=== PATIENT | male | born 1955 | race Caucasian/White ===

== ENCOUNTER 2017-01-14 21:18 | Inpatient (IN) | payer MEDICAID, OTHER ==
[~2017-01-14] VITALS: Ht 177.8 cm; Wt 194.3 kg
[~2017-01-14 21:18] MED LIST: ALLO100T PO; AZIT250T PO; ENAL5TAB PO; FURO-144 PO; METO-304 PO; OMEP40CA37 PO; POTA10TA10 PO; RIVA10TA PO
--- NOTE | 2017-01-14 21:20 | NUR ---
to bed 2 bib paramedics c/o sob, worsening abdominal swelling, BLE swelling x4-6weeks. pt aaox4 no acute distress noted, resp even and unlabored. place pt on cardiac monitoring, continuous pox, o2@2l/nc. call light within reach. will continue to monitor pt closely. pending er md guardado.
--- NOTE | 2017-01-14 21:23 | NUR ---
jose a digital x ray service engineer at bedside to debby vogt.
[2017-01-14 21:40] LABS: BASOPHILS # (AUTO) 0.1 /CMM (0.0-0.2); BASOPHILS % (AUTO) 1.6 % (0.0-2.0); EOSINOPHILS # (AUTO) 0.1 /CMM (0.0-0.7); EOSINOPHILS % (AUTO) 1.3 % (0.0-6.0); HEMATOCRIT 41 % (39-51); HEMOGLOBIN 12.9 g/dL (13.5-17.5); LYMPHOCYTES # (AUTO) 0.5 /CMM (0.8-4.8); LYMPHOCYTES % (AUTO) 7.6 % (20.0-44.0); MEAN CORPUSCULAR HEMOGLOBIN 26 PG (26.0-33.0); MEAN CORPUSCULAR HGB CONC 32 g/dl (31.0-36.0); MEAN CORPUSCULAR VOLUME 83 fL (80-96); MONOCYTES # (AUTO) 0.3 /CMM (0.1-1.30); MONOCYTES % (AUTO) 5.5 % (2.0-12.0); PLATELET COUNT (AUTO) 149 /CMM (150-450); RDW COEFFICIENT OF VARIATION 15.3 (11.5-15.0); RED BLOOD CELL COUNT(AUTO) 4.95 MIL/uL (4.5-6.0)
[2017-01-14 21:57] LABS: INR 1.1 (0.87-1.13); PROTHROMBIN TIME 11.8 SECS (9.5-12.7)
[2017-01-14 22:11] LABS: ALANINE AMINOTRANSFERASE 23 U/L (12-78); ALBUMIN 2.7 g/dL (3.4-5.0); ALKALINE PHOSPHATASE 84 U/L (46-116); ASPARTATE AMINOTRANSFERASE 22 U/L (15-37); BILIRUBIN,DIRECT 0.2 mg/dL (0.0-0.2); BILIRUBIN,TOTAL 0.9 mg/dL (0.2-1.0); CALCIUM, SERUM 8.4 mg/dL (8.5-10.1); CHLORIDE 99 mmol/L (98-107); CREATININE 1.6 mg/dL (0.6-1.3); GFR 44 mL/min (>60); GLUCOSE 149 mg/dL (74-106); POTASSIUM 3.4 mmol/L (3.5-5.1); SODIUM SERUM 142 mmol/L (136-145); TOTAL PROTEIN, SERUM 7.3 g/dL (6.4-8.2); TROPONIN I < 0.017 ng/mL (0.00-0.056); UREA NITROGEN, BLOOD 16 mg/dL (7-18)
[2017-01-14 22:18] LABS: CARBON DIOXIDE 40 mmol/L (21-32)
[2017-01-14 22:38] LABS: MAGNESIUM 1.8 mg/dL (1.8-2.4); PHOSPHORUS 2.7 mg/dL (2.5-4.9)
--- NOTE | 2017-01-14 22:54 | NUR ---
report called to telegraph service rateramish hogue. pending hospital admission.
--- NOTE | 2017-01-14 23:48 | NUR ---
er md spoke to dr. castillo regarding pt admission. admission orders received. will transport pt via acls protocol.
--- NOTE | 2017-01-15 00:15 | NUR ---
COLLECTIONS DIRECTOR NOTES Admitted new patient with a diagnosis of CHF. Alert and oriented. On oxygen at 4lpm via NC. Left hand IV access noted, intact and patent. Oriented to the room settings. Skin and body assessment done.Belonging list done. Will cont. to monitor.
[2017-01-15] MEDS ORDERED: ZOLPIDEM TARTRATE 5 MG TABLET PO PRN (01:30)
[2017-01-15] MEDS ORDERED: FUROSEMIDE 40 MG/4 ML VIAL IV SCH (01:30)
[2017-01-15] MEDS ORDERED: ACETAMINOPHEN 325 MG TABLET PO PRN (01:30)
--- NOTE | 2017-01-15 06:54 | NUR ---
ASSISTANT PROFESSOR OF PHYSICS NOTES Pt. remains stable throughout the night. NO complaint of shortness of breath noted. Will endorse in am nurse.
[2017-01-15 06:55] LABS: BASOPHILS % (AUTO) 0.5 % (0.0-2.0); EOSINOPHILS # (AUTO) 0.1 /CMM (0.0-0.7); EOSINOPHILS % (AUTO) 1.5 % (0.0-6.0); HEMATOCRIT 37 % (39-51); HEMOGLOBIN 11.7 g/dL (13.5-17.5); LYMPHOCYTES # (AUTO) 0.4 /CMM (0.8-4.8); LYMPHOCYTES % (AUTO) 6.5 % (20.0-44.0); MEAN CORPUSCULAR HEMOGLOBIN 26 PG (26.0-33.0); MEAN CORPUSCULAR HGB CONC 31 g/dl (31.0-36.0); MEAN CORPUSCULAR VOLUME 83 fL (80-96); MONOCYTES # (AUTO) 0.5 /CMM (0.1-1.30); MONOCYTES % (AUTO) 7.8 % (2.0-12.0); NEUTROPHILS # (AUTO) 5.1 /CMM (1.8-8.9); NEUTROPHILS % (AUTO) 83.7 % (43.0-81.0); PLATELET COUNT (AUTO) 169 /CMM (150-450); RDW COEFFICIENT OF VARIATION 16.5 (11.5-15.0); RED BLOOD CELL COUNT(AUTO) 4.49 MIL/uL (4.5-6.0); WHITE BLOOD COUNT (AUTO) 6.1 K/uL (4.3-11.0)
--- NOTE | 2017-01-15 07:01 | NUR ---
Left a message to central supply regarding Barimaxx bed for the patient. Will endorse in am shift to follow up.
--- NOTE | 2017-01-15 07:25 | NUR ---
RN NOTES: PT ON BED, AWAKE, REMAINS A/O X3, RESPIRATION EVEN AND UNLABORED ON ROOM AIR, DENIES ANY PAIN OR DISCOMFORT AT THIS TIME. IV ACCESS REMAINS PATENT AND INTACT NO REDNESS OR INFILTRATION NOTED. VS REMAINS STABLE, NEEDS ATTENDED. SAFETY PRECAUTIONS OBSERVED, CALL LIGHT IN REACH, WILL CONTINUE TO MONITOR
[2017-01-15 07:29] LABS: CALCIUM, SERUM 8.1 mg/dL (8.5-10.1); CREATININE 1.3 mg/dL (0.6-1.3); POTASSIUM 3.6 mmol/L (3.5-5.1)
--- NOTE | 2017-01-15 07:30 | NUR ---
AM RN NOTE Received patient awake A/O X4 verbally responsive. No acute distress noted. On O2 2L/min via NC. Resp even and non-labored. IV site intact and patent. Condom cath intact as applied by previous shift nurse. Bed in low locked position. Will continue to monitor.
[2017-01-15 08:00] VITALS: BP 131/81
--- NOTE | 2017-01-15 08:15 | NUR ---
AM RN NOTE CO2 40 (Lab results) notified to Dr. Mccall. Dr. Mccall made aware about condom cath.
[2017-01-15] MEDS: FUROSEMIDE 40 MG/4 ML VIAL IV SCH ×2 (08:34→17:45)
[2017-01-15] MEDS ORDERED: POTASSIUM CHLORIDE 10 MEQ TABLET.SA PO SCH (09:00)
[2017-01-15] MEDS ORDERED: AZITHROMYCIN 250 MG TABLET PO SCH (09:00)
[2017-01-15] MEDS ORDERED: FUROSEMIDE 40 MG TABLET PO SCH (09:00)
[2017-01-15 09:02] LABS: THYROID STIMULATING HORMONE 3.527 uIU/mL (0.358-3.74)
[2017-01-15] MEDS: POTASSIUM CHLORIDE 10 MEQ TABLET.SA PO SCH ×2 (09:14→17:45)
[2017-01-15] MEDS: ALLOPURINOL 100 MG TABLET PO SCH (09:15)
[2017-01-15] MEDS: METOPROLOL SUCCINATE 50 MG TAB.SR.24H PO SCH (09:15)
[2017-01-15] MEDS: LEVOFLOXACIN (500MG) 500 MG TABLET PO SCH (09:15)
[2017-01-15] MEDS: ENALAPRIL MALEATE (5 MG) 5 MG TABLET PO SCH ×2 (09:15→17:46)
--- NOTE | 2017-01-15 09:52 | NUR ---
AM RN NOTE Consent for US guided left thoracentesis obtained from patient. Called US department no response. Will call again.
[2017-01-15 10:30] LABS: ABG BASE EXCESS 11.2 mmol/L; ABG OXYGEN SATURATION 98.2 % (92.0-98.5); ABG PH 7.429 (7.350-7.450); ABG PO2 117.8 mmHg (75.0-100.0); ABG TOTAL HEMOGLOBIN 11.8 G/dL (13.5-18.0); AaDO2 100.7 mmHg; COHb 1.6 % (0.5-1.5); MetHb 0.7 % (0.0-1.5); O2Hb 95.9 % (94.0-97.0); SITE, ABG Right Radial; VENT MODE, BG NASAL CANNULA
--- NOTE | 2017-01-15 10:40 | NUR ---
AM RN NOTE Received call from Li (Respiratory therapist) with ABG's results PCO2 58.0 & [id number] and she recommended to decrease O2 from 5L to 2L/min via NC. Dr. Mccall made aware.
--- NOTE | 2017-01-15 11:37 | NUR ---
AM RN NOTE Spoke with Juan (X-Rays) he will airframe and powerplant technician for US guided thoracentesis. ELEAZAR (Rica) made aware.
--- NOTE | 2017-01-15 14:55 | NUR ---
AM RN NOTE Patient awake, A/O X3 verbally responsive. On O2 2L/min via NC O2 sat 96%. Resp even and non-labored. Thoracentesis done at bedside with 1.5 L left pleural fluid removal. No bleeding noted at site. Fluid send to lab. Dr. Mccall made aware.
[2017-01-15 15:59] VITALS: BP 103/56
[2017-01-15 15:59] LABS: APPEARANCE,SPUN,BODY FLUID HAZY (CLEAR); TOTAL VOLUME,BODY FLUID 1500 mL; WBC, BODY FLUID 500 /cu. mm. (0-200)
[2017-01-15 16:02] LABS: GLUCOSE,BODY FLUID 128 mg/dL; PROTEIN, BODY FLUID 2.5 G/DL
--- NOTE | 2017-01-15 16:08 | NUR ---
AM RN NOTE [facility] bed ordered, spoke with Jey @[facility] supply.
[2017-01-15 17:39] LABS: MACROPHAGES, BODY FLUID 12; MONOCYTES,BODY FLUID 6 %; POLYNUCLEAR, BODY FLUID 14 % (0-25)
[2017-01-15] MEDS: RIVAROXABAN 10 MG TABLET PO SCH (17:46)
--- NOTE | 2017-01-15 18:25 | NUR ---
AM RN NOTE Patient awake, A/O X4 verbally responsive. Denies any pain at this time. Dressing on S/P thoracentesis site intact and patent. Condom cath came off and re-applied new one on with output. Will endorse to next shift for MAR.
--- NOTE | 2017-01-15 19:00 | NUR ---
AM RN NOTE Patient IV site noted with leakage, attempted to re-insert but pt stated later. Will endorse to next shift RN.
--- NOTE | 2017-01-15 19:30 | NUR ---
SPORTS TRAINER OPENING NOTES: PATIENT IN BED, AOX4, ON O2 AR 2 LPM VIA NC. BREATHING NOTED TO BE AT RATE OF 21-24/MINUTE, BREATH SOUNDS CLEAR AT UPPER LUNG LIM, AND DIMINISHED AT BASES. ON TELE MONITORING, NOTED TO BE WITH AFIB AT RATE OF 80S. NO PIV ACCESS AT THIS TIME, INFORMED PATIENT THAT NEW IV LINE WILL BE REINSERTED. PATIENT HAS ALSO ACCIDENTALLY PULLED OFF CONDOM CATHETER. ACCDG TO PATIENT, HE USES THE URINAL, HOWEVER, PATIENT WAS NOTED TO HAVE SOB, ASKED PATIENT TO CALL NURSE WHENEVER HE NEEDS HELP WITH URINAL. ALSO ASKED IF PATIENT IS OK WITH POLLARD CATHETER BEING PLACED, PATIENT IS AGREEABLE. PROVIDED FOR COMFORT AND SAFETY. WILL CONT TO MONITOR.
[2017-01-15 20:00] VITALS: BP 118/69
--- NOTE | 2017-01-15 20:12 | NUR ---
RN NOTES: CHANGED IV SITE TO LEFT UPPER ARM, G 22. INTACT AND PATENT TO FLUSH.
--- NOTE | 2017-01-15 20:16 | NUR ---
RN NOTES: CALLED DR GARCIA FOR ORDER FOR POLLARD CATHETER PATIENT FEELS SOB WHENEVER HE TRIES TO USE THE URINAL. PATIENT IS ALSO HAVING TROUBLE KEEPING CONDOM CATHETER ON. DR GARCIA IMMEDIATELY CALLED BACK, ORDERED FOR POLLARD CATHETER. NOTED AND CARRIED OUT.
--- NOTE | 2017-01-15 22:28 | NUR ---
RN NOTES: POLLARD CATHETER FR 16 INSERTED, HOWEVER, NO IMMEDIATE URINE WAS OBSERVED IN THE TUBING. PATIENT HAS JUST HAD 380 CC URINE IN URINAL, PER PATIENT, HE HAD JUST VOIDED. WILL CONT TO MONITOR.
[2017-01-15 23:03] VITALS: BP 119/80
[2017-01-16] VITALS (9 sets, daily range): BP systolic 90–120; BP diastolic 48–66
--- NOTE | 2017-01-16 00:55 | NUR ---
RN NOTES: STILL WITH NO URINE IN TUBING. CHECKED WITH BLADDER SCAN, RECORDED > 200 ML URINE IN BLADDER. REPOSITIONED PATIENT TO SIDE.
[2017-01-16] MEDS: FUROSEMIDE 40 MG/4 ML VIAL IV SCH (01:34)
--- NOTE | 2017-01-16 02:00 | NUR ---
RN NOTES: PATIENT NOTED TO HAVE URINE IN COLLECTION BAG FROM POLLARD CATHETER AT ABOUT 80 CC, NOTED COLOR TO BE WITH REDDISH TINGE. NO LEAKING FROM SIDE OF URETHRA. WILL CONT TO MONITOR.
--- NOTE | 2017-01-16 06:00 | NUR ---
RN NOTES: PT STATES THAT THE PAIN OVER HIS URETHRA FROM THE POLLARD CATHETER HAS BEEN HURTING TOO MUCH, AND ASKED FOR IT TO BE TAKEN OFF. POLLARD CATHETER WAS TAKEN OFF, HOWEVER, MODERATE TO PROFUSE BLEEDING WAS NOTED FROM URETHRA. WILL CONT TO MONITOR.
--- NOTE | 2017-01-16 07:10 | NUR ---
RN NOTES: INFORMED DR GARCIA REGARDING PATIENT'S BLEEDING AFTER TAKING OUT THE POLLARD CATHETER. PER MD, MONITOR AMOUNT OF BLEEDING AND ORDERED ALSO FOR NORCO 5-325 MG PO Q4 PRN FOR PAIN. NOTED AND CARRIED OUT,
--- NOTE | 2017-01-16 07:30 | NUR ---
REAL ESTATE EXECUTIVE ASSISTANT CLOSING NOTES: PATIENT IN BED, AOX4, ON O2 AT 2 LPM VIA NC. BREATHING EVEN AND UNLABORED. ON TELE MONITORING, SHOWING AFIB AT RATE OF 80S. PIV OVER L UPPER ARM INTACT AND PATENT TO FLUSH. POLLARD CATHETER REMOVED, STILL WITH SLIGHT BLEEDING FROM URETHRA. DR GARCIA INFORMED RE BLEEDING, PER MD, HE WILL ASSESS IT. PROVIDED FOR COMFORT AND SAFETY. DUE MEDS GIVEN. ENDORSED TO AM RN, VICKI, FOR MAR.
[2017-01-16] MEDS ORDERED: HYDROCODONE/APAP 5/325MG 1 EACH TABLET PO PRN (08:00)
--- NOTE | 2017-01-16 08:00 | NUR ---
MS RN NOTES PATIENT NOTED WITH BLOOD IN URINE. DR. GARCIA MADE AWARE. BED IN LOW LOCKED POSITION. CALL LIGHT WITHIN REACH. WILL CONTINUE TO MONITOR.
[2017-01-16] MEDS: FUROSEMIDE 40 MG TABLET PO SCH ×2 (08:53→17:03)
[2017-01-16] MEDS: LEVOFLOXACIN (500MG) 500 MG TABLET PO SCH (08:53)
[2017-01-16] MEDS: ALLOPURINOL 100 MG TABLET PO SCH (08:53)
[2017-01-16] MEDS: PANTOPRAZOLE 40 MG TABLET.DR PO SCH (08:53)
[2017-01-16] MEDS: POTASSIUM CHLORIDE 10 MEQ TABLET.SA PO SCH ×2 (08:53→17:03)
[2017-01-16] MEDS: METOPROLOL SUCCINATE 50 MG TAB.SR.24H PO SCH (08:53)
--- NOTE | 2017-01-16 09:00 | NUR ---
PARTS ROOM ASSOCIATE NOTES PATIENT NATHEN AND EVALUATED BY DR. GARCIA ORDERS NOTED AND CARRIED OUT. VERBAL ORDERS OBTAINED TO HOLD XARELTO X 1 DAY ONLY DUE TO BLEEDING IN URIN.
[2017-01-16 09:46] LABS: CALCIUM, SERUM 8.2 mg/dL (8.5-10.1); CREATININE 1.3 mg/dL (0.6-1.3); POTASSIUM 4.9 mmol/L (3.5-5.1)
[2017-01-16] MEDS ORDERED: DOCUSATE SODIUM 100 MG CAPSULE PO PRN (15:00)
[2017-01-16] MEDS: RIVAROXABAN 10 MG TABLET PO SCH (17:00)
--- NOTE | 2017-01-16 19:33 | NUR ---
MANNEQUIN MOUNTER NOTES PATIENT IN BED RESTING NO SOB OR ACUTE DISTRESS NOTED. ALL DUE MEDICATIONS GIVEN. ALL NEEDS MET. PATIENTS URIN CLEARED NO BLOOD NOTED. ABLE TO URINATE WITHOUT PAIN. IV INTACT PATENT ON LEFT UPPER AM. ENDORSED CARE TO PM SHIFT.
[2017-01-17] VITALS: BP_SYST 113; BP_SYST 120; BP_DIAS 55; BP_DIAS 76
[2017-01-17 04:00] VITALS: BP 116/70
[2017-01-17 06:01] LABS: BASOPHILS % (AUTO) 0.1 % (0.0-2.0); EOSINOPHILS # (AUTO) 0.1 /CMM (0.0-0.7); EOSINOPHILS % (AUTO) 1.4 % (0.0-6.0); HEMATOCRIT 36 % (39-51); HEMOGLOBIN 11.1 g/dL (13.5-17.5); LYMPHOCYTES # (AUTO) 0.3 /CMM (0.8-4.8); MEAN CORPUSCULAR HEMOGLOBIN 26 PG (26.0-33.0); MEAN CORPUSCULAR HGB CONC 31 g/dl (31.0-36.0); MEAN CORPUSCULAR VOLUME 84 fL (80-96); MONOCYTES # (AUTO) 0.3 /CMM (0.1-1.30); MONOCYTES % (AUTO) 5.7 % (2.0-12.0); NEUTROPHILS # (AUTO) 5.1 /CMM (1.8-8.9); NEUTROPHILS % (AUTO) 87.8 % (43.0-81.0); PLATELET COUNT (AUTO) 146 /CMM (150-450); RDW COEFFICIENT OF VARIATION 16.6 (11.5-15.0); RED BLOOD CELL COUNT(AUTO) 4.29 MIL/uL (4.5-6.0); WHITE BLOOD COUNT (AUTO) 5.8 K/uL (4.3-11.0)
[2017-01-17 06:22] LABS: CALCIUM, SERUM 8.3 mg/dL (8.5-10.1); CREATININE 1.2 mg/dL (0.6-1.3); POTASSIUM 4.2 mmol/L (3.5-5.1)
--- NOTE | 2017-01-17 06:36 | NUR ---
RN NOTES: PATIENT HAS A CRITICAL VALUE OF CARBON DIOXIDE OF 42. ROBINA FRANKS IS NOTIFIED. STATES" IT'S OKAY". NO NEW ORDERS RECEIVED. PATIENT IS RESTING IN BED. STABLE VITAL SIGNS. NO COMPLAINS OF PAIN OR DISTRESS AT THIS TIME. WILL ENDORSE IT TO AM SHIFT NURSE TO CONTINUE THE CARE.
--- NOTE | 2017-01-17 07:48 | NUR ---
PILOT PLANT RESEARCH TECHNICIAN OPENING NOTES RECEIVED PATIENT IN BED, AWAKE, HEAD OF BED ELEVATED, NO SOB OR DISTRESS NOTED, ON O2 AT 2LPM VIA NC AND TOLERATED WELL. ON TELE MONITOR A-FIB HEART RATE OF 84. NO JVD, PATIENT ALERTED AND ORIENTED TIMES 4. VERBALLY RESPONSIVE AND ABLE TO MAKE NEEDS KNOWN. IV INTACT AND PATENT. PATIENT ON BARIATRIC BED, BED IS LOCKED ON THE LOWEST POSITION, CALL LIGHT WITHIN PATIENT REACH. KEPT PATIENT CLEAN AND COMFORTABLE. WILL CONTINUE TO MONITOR ACCORDINGLY.
[2017-01-17 08:00] VITALS: BP 117/67
[2017-01-17] MEDS: LEVOFLOXACIN (500MG) 500 MG TABLET PO SCH (08:15)
[2017-01-17] MEDS: PANTOPRAZOLE 40 MG TABLET.DR PO SCH (08:16)
[2017-01-17] MEDS: METOPROLOL SUCCINATE 50 MG TAB.SR.24H PO SCH (08:16)
[2017-01-17] MEDS: FUROSEMIDE 40 MG TABLET PO SCH ×2 (08:17→17:11)
[2017-01-17] MEDS: ALLOPURINOL 100 MG TABLET PO SCH (08:17)
[2017-01-17] MEDS: POTASSIUM CHLORIDE 10 MEQ TABLET.SA PO SCH ×2 (08:17→17:11)
[2017-01-17] MEDS ORDERED: LEVO500T15 PO (09:05)
--- NOTE | 2017-01-17 09:49 | NUR ---
WOUND CARE CONSULT: PATIENT SEEN AND SKIN ASSESSMENT DONE. PATIENT ALERT, ORIENTED, ABLE TO TURN AND REPOSITION HOWEVER NEEDS ASSIST, CONTINENT, GIANCARLO 16, ON BARIMMAX II BED WITH ETS AIR. SEE TODAY'S SKIN ASSESSMENT IN PCS ALONG WITH RECOMMENDATIONS DISCUSSED WITH NURSING STAFF INCLUDING MOISTURE PROTECTION WITH Z GUARD ORDERED. MD IN AGREEMENT WITH PLAN OF CARE. Addendum: 01/17/17 at 0951 by RAFA SCHNEIDER WNDNU Amended: Links added.
[2017-01-17] MEDS ORDERED: Z GUARD REMEDY 2 OZ OINT TP PRN (10:00)
[2017-01-17] MEDS ORDERED: NEOMY SULF/BACITRAC ZN/POLY 15 GM TUBE TP SCH (10:00)
[2017-01-17 12:24] VITALS: BP 113/62
[2017-01-17 16:00] VITALS: BP 111/78
[2017-01-17] MEDS: RIVAROXABAN 10 MG TABLET PO SCH (17:10)
--- NOTE | 2017-01-17 17:35 | NUR ---
SUPERVISOR BONDINGFORDER OPERATOR NOTES Discharge instructions given to patient and able to understand instructions and signed discharge paper and belongings list. Pneumonia and flu vaccine not given. flu vaccine is out of season and pneumonia vaccine not given because patient is <65. Patient left via ambulance accompanied by 2 paramedics and 1 EMT in stable condition. No SOB or distress noted, no complain of pain nor chest pain. Vitals signs checked and recorded. MD and charge nurse aware. Addendum: 01/17/17 at 1751 by SEFERINO GARCIA RN Ted mckeon.
== END 2017-01-17 18:30 | disposition home health service (06) | DRG 383 ==
LOC: ER 21:20 → TELE 22:43 → MED 01-17 16:37
PROVIDERS: ADMIT Internal Medicine; ATTEND Nurse Practitioner Acute Care
PROC: 0W9B3ZZ Drainage of Left Pleural Cavity, Percutaneous Approach (ICD-10-PCS; principal; 2017-01-16)
DX: L03.115 Cellulitis of right lower limb (principal); I50.33 Acute on chronic diastolic (congestive) heart failure; J90 Pleural effusion, not elsewhere classified; J20.9 Acute bronchitis, unspecified; E66.2 Morbid (severe) obesity with alveolar hypoventilation; I48.91 Unspecified atrial fibrillation; L03.116 Cellulitis of left lower limb; I87.2 Venous insufficiency (chronic) (peripheral); M10.9 Gout, unspecified; Z79.01 Long term (current) use of anticoagulants; I11.0 Hypertensive heart disease with heart failure; Z68.44 Body mass index [BMI] 60.0-69.9, adult
CPT/HCPCS: 36415; 36600; 71010-TC; 76942-TC; 80048-TC; 80076-TC; 83735-TC; 84100-TC; 84443-TC; 84484-TC; 85025-TC; 85730-TC; 87070-TC; 87081-TC; 89051-TC; 93307-TC; A4349; A4606; J1940; Z7610

== ENCOUNTER 2017-01-20 16:22 | Inpatient (IN) | payer MEDICAID ==
[~2017-01-20] VITALS: Ht 167.6 cm; Wt 195.0 kg
[~2017-01-20 16:22] MED LIST changes: -AZIT250T PO; -ENAL5TAB PO; +LEVO500T15 PO
--- NOTE | 2017-01-20 17:30 | NUR ---
PT BIB SELF C/O "FEELING LIKE I DID WHEN I CAME IN LAST TIME" INCLUDING LIGHTHEADEDNESS, MILD SOB, USING HOME O2 CONTINUOUSLY, AND DAVION LOWER EXTREMITY +4 PITTING EDEMA. PT REPORTS HE USUALLY USES HOME O2 SPARINGLY BUT HAS BEEN ON IT CONTINUOUSLY. RESP APPEARS EVEN UNLABORED. SKIN WARM NONDIAPHORETIC, TAUT. A/OX4. NO NEURO DEFICITS. IN ER BED 15 ON MONITOR. ON 4LPM VIA NC FOR O2 SUPPORT.
[2017-01-20] MEDS ORDERED: FUROSEMIDE 40 MG/4 ML VIAL ONE (17:56)
[2017-01-20] MEDS ORDERED: LEVO500T90 PO (17:59)
[2017-01-20] MEDS ORDERED: FURO40TA5 PO (17:59)
[2017-01-20] MEDS ORDERED: FUROSEMIDE 40 MG/4 ML VIAL IV ONE (18:00)
[2017-01-20 18:05] LABS: BASOPHILS # (AUTO) 0.1 /CMM (0.0-0.2); BASOPHILS % (AUTO) 2.2 % (0.0-2.0); EOSINOPHILS # (AUTO) 0.1 /CMM (0.0-0.7); EOSINOPHILS % (AUTO) 1.9 % (0.0-6.0); HEMATOCRIT 36 % (39-51); HEMOGLOBIN 11.5 g/dL (13.5-17.5); LYMPHOCYTES # (AUTO) 0.5 /CMM (0.8-4.8); LYMPHOCYTES % (AUTO) 8.5 % (20.0-44.0); MEAN CORPUSCULAR HEMOGLOBIN 27 PG (26.0-33.0); MEAN CORPUSCULAR HGB CONC 32 g/dl (31.0-36.0); MEAN CORPUSCULAR VOLUME 83 fL (80-96); MONOCYTES # (AUTO) 0.2 /CMM (0.1-1.30); MONOCYTES % (AUTO) 4.3 % (2.0-12.0); NEUTROPHILS # (AUTO) 4.8 /CMM (1.8-8.9); NEUTROPHILS % (AUTO) 83.1 % (43.0-81.0); PLATELET COUNT (AUTO) 123 /CMM (150-450); RDW COEFFICIENT OF VARIATION 15.8 (11.5-15.0); RED BLOOD CELL COUNT(AUTO) 4.28 MIL/uL (4.5-6.0); WHITE BLOOD COUNT (AUTO) 5.7 K/uL (4.3-11.0)
[2017-01-20 18:21] LABS: TROPONIN I < 0.017 ng/mL (0.00-0.056)
[2017-01-20 18:22] LABS: INR 1.2 (0.87-1.13); PROTHROMBIN TIME 12.6 SECS (9.5-12.7)
[2017-01-20 18:29] LABS: ALANINE AMINOTRANSFERASE 19 U/L (12-78); ALBUMIN 2.4 g/dL (3.4-5.0); ALKALINE PHOSPHATASE 64 U/L (46-116); ASPARTATE AMINOTRANSFERASE 26 U/L (15-37); B-TYPE NATRIURETIC PEPTIDE 1509 PG/ML (0-125); BILIRUBIN,DIRECT 0.2 mg/dL (0.0-0.2); BILIRUBIN,TOTAL 0.6 mg/dL (0.2-1.0); CALCIUM, SERUM 8.6 mg/dL (8.5-10.1); CHLORIDE 104 mmol/L (98-107); CREATININE 1.3 mg/dL (0.6-1.3); GFR 57 mL/min (>60); GLUCOSE 102 mg/dL (74-106); POTASSIUM 4.3 mmol/L (3.5-5.1); SODIUM SERUM 144 mmol/L (136-145); TOTAL PROTEIN, SERUM 6.5 g/dL (6.4-8.2); UREA NITROGEN, BLOOD 20 mg/dL (7-18)
[2017-01-20 18:46] LABS: CARBON DIOXIDE 45 mmol/L (21-32)
--- NOTE | 2017-01-20 18:56 | NUR ---
DR.SHAO ELLER
--- NOTE | 2017-01-20 19:15 | NUR ---
Patient is resting comfortably in bed. VSS. ALL NEEDS ATTENDED TO. NAD NOTED. RESP EVEN UNLABORED.
--- NOTE | 2017-01-20 19:15 | NUR ---
RECIEVED CALL FROM RADHA AT [facility], PHONE NUMBER [phone], SHE INFORMED ME SHE IS GOING TO WORK ON PLACEMENT FOR PT AND ASKED ME TO FAX FACESHEET AND PT RESULTS TO [phone]
--- NOTE | 2017-01-20 20:00 | NUR ---
TRIED CALLING RADHA FROM [facility] AT [phone], PHONE NUMBER DOES NOT WORK
--- NOTE | 2017-01-20 21:00 | NUR ---
TRIED CALLING RADHA AT [facility] AGAIN, PHONE NUMBER DOES NOT WORK STILL
--- NOTE | 2017-01-20 21:42 | NUR ---
HFOX: RESTING COMFORTABLY IN BED, ALL NEEDS ATTENDED TO. NAD NOTED.
--- NOTE | 2017-01-20 22:00 | NUR ---
Patient is resting comfortably in bed. VSS. NAD NOTED. RESP EVEN UNLABORED.
--- NOTE | 2017-01-20 22:42 | NUR ---
CALLED AT [phone], LEFT MESSAGE ON VOICEMAIL
--- NOTE | 2017-01-20 23:26 | NUR ---
PROVIDED WITH SANDWICH AND JUICE PER PT REQUEST. NAD NOTED. VSS.
--- NOTE | 2017-01-20 23:35 | NUR ---
REPORT GIVEN TO BRUNA PURCELL RN FOR MAR.
[2017-01-21] VITALS: BP 141/77
--- NOTE | 2017-01-21 00:02 | NUR ---
SPOKE TO RADHA, DRIVE IN WAITER/WAITRESS AND STATES "WE GOT A BED AT [facility]". ALSO REQUESTED ORDER FOR BARIATRIC BED TO BE FAXED WHICH WAS DONE.
--- NOTE | 2017-01-21 00:15 | NUR ---
STORE TEAM LEADER RADHA CALLED BACK AND STATED "I CANT FIND A BED DUE TO PATEINT WEIGHT".
--- NOTE | 2017-01-21 00:17 | NUR ---
DR. GARCIA NOTIFIED AND STATES "ADMIT PATEINT HERE AT [facility]"."
--- NOTE | 2017-01-21 00:36 | NUR ---
REPORT GIVEN TO KYE/COLIN.
--- NOTE | 2017-01-21 00:50 | NUR ---
RN NOTES: NEW ADMISSION FROM ER VIA JENYRSCARLET ACCOMPANIED BY RN WITH C/O BLE SWELLING AND DIZZINESS SINCE AM,WORSENING COUGH AND SOB,PATIENT IS ALERT AND COHERENTX3, OBESE,ABLE TO MAKE NEEDS KNOWN,WITH ON AND OFF COUGH WITH WHITE PHLEGM,KEPT ON HIGH FOWLERS POSITION ON CONTINOUR O2 SPO2-93%,RECEIVED LASIX 40 MG IN ER,ABLE TO PEE IN THE URINAL WITH ASSISTANCE, PATIENT CLAIMED HE HAS BLOOD STREAK IN THE URINE AFTER CATHETER REMOVAL DURING HIS LAST ADMISSION HERE IN [facility] ON ,UPON URINATION NOTED BLOOD STREAKED ON THE URINE.SOB ON EXERTION,BODY ASSESSEMNT DONE: OLD SURGICAL SITE ON THE MID ABDOMEN AREA,MULTIPLE SKIN DISCOLORATION NOTED ON BUE AND [id number],REDNESS,OLD SCABS),BLACK DISCOLORATION ON THE RIGHT FOOT ADJASCENT TO RIGHT BIG TOE;FOR WOUND CONSULT,BLE (++++)EDEMA WITH REDNESS/SWELLING AND REDDISH/PINK DISCOLORATION NOTED.BLE KEPT ELEVATED.IV CANNULA ON RAIZA G#20 PATENT.ORRIENTED TO UNIT AND STAFF, FALL SAFETY, ASPIRATION PRECAUTION OBSERVE, CALL LIGHT WITHIN EASY REACH,BED LOW AND LOCKED.
[2017-01-21 01:00] VITALS: BP 141/77
--- NOTE | 2017-01-21 01:50 | NUR ---
RN NOTES: PATIENT REQUEST FOR PAIN MEDICATION HE WANTS TYLENOL FOR HIS BACK PAIN 2-3,PUT IN COMFORTABLE POSITION,CALL LIGHT WITHIN REACH.
--- NOTE | 2017-01-21 03:00 | NUR ---
RN NOTES: ABLE TO SLEEP AT SHORT INTERVALS,AFTER HE PEE ON THE URINAL HE REQUEST TO TAKE HIS TYLENOL, GENERALIZED PAIN 3/10,MAINTAIN ON HIGH FOWLERS POSITION, CALL LIGHT WITHIN REACH.
[2017-01-21] MEDS ORDERED: ACETAMINOPHEN 325 MG TABLET ONE (03:03)
[2017-01-21] MEDS: ACETAMINOPHEN 325 MG TABLET PO PRN ×2 (03:08→18:49)
--- NOTE | 2017-01-21 07:00 | NUR ---
RN NOTES: PATIENT BEDSIDE MEDICATION CHECK AND PUT IN 1 CONTAINER TO BE SEND TO PHARMACY,COUNTER SIGNED BY PATIENT, CALL LIGHT WITH IN REACH, BED LOW AND LOCKED,ENDORSED FOR CONTINUITY OF CARE.
--- NOTE | 2017-01-21 07:30 | NUR ---
MS RN RECEIVED ON BED, AWAKE,ALERT,ORIENTED X4,CAME IN W/ SOB DENIES PAIN AT THIS TIME. PATIENT STILL COMPLAINING OF SOB, W/ ADEQUATE SATURATION, WILL MONITOR PATIENT.
[2017-01-21 08:00] VITALS: BP 118/68
[2017-01-21 08:10] LABS: EOSINOPHILS # (AUTO) 0.1 /CMM (0.0-0.7); EOSINOPHILS % (AUTO) 1.2 % (0.0-6.0); HEMATOCRIT 40 % (39-51); HEMOGLOBIN 12.4 g/dL (13.5-17.5); LYMPHOCYTES # (AUTO) 0.4 /CMM (0.8-4.8); LYMPHOCYTES % (AUTO) 5.5 % (20.0-44.0); MEAN CORPUSCULAR HEMOGLOBIN 26 PG (26.0-33.0); MEAN CORPUSCULAR HGB CONC 31 g/dl (31.0-36.0); MEAN CORPUSCULAR VOLUME 84 fL (80-96); MONOCYTES # (AUTO) 0.4 /CMM (0.1-1.30); MONOCYTES % (AUTO) 6.4 % (2.0-12.0); NEUTROPHILS # (AUTO) 5.5 /CMM (1.8-8.9); NEUTROPHILS % (AUTO) 86.9 % (43.0-81.0); PLATELET COUNT (AUTO) 139 /CMM (150-450); RDW COEFFICIENT OF VARIATION 16.4 (11.5-15.0); RED BLOOD CELL COUNT(AUTO) 4.74 MIL/uL (4.5-6.0); WHITE BLOOD COUNT (AUTO) 6.4 K/uL (4.3-11.0)
--- NOTE | 2017-01-21 08:25 | NUR ---
MS RN RECEIVED A CRITICAL VALUE OF CO2 - 41, DR GARCIA WAS AWARE AND SAW PATIENT.
--- NOTE | 2017-01-21 08:30 | NUR ---
MS SHAW BREAKFAST SERVED, DUE MEDS GIVEN,TOLERATED WELL.
[2017-01-21 08:37] LABS: CALCIUM, SERUM 8.6 mg/dL (8.5-10.1); CREATININE 1.3 mg/dL (0.6-1.3); POTASSIUM 4.2 mmol/L (3.5-5.1)
--- NOTE | 2017-01-21 08:45 | NUR ---
MS RN WAS SEEN BY RADHA PATRICIA/ ABI TO HAVE U/S GUIDED THORACENTESIS.
[2017-01-21] MEDS: FUROSEMIDE 40 MG/4 ML VIAL IV SCH ×2 (09:42→18:24)
[2017-01-21] MEDS: ALLOPURINOL 100 MG TABLET PO SCH (09:45)
[2017-01-21] MEDS: POTASSIUM CHLORIDE 20 MEQ TAB.PRT.SR PO SCH (09:45)
[2017-01-21] MEDS: LEVOFLOXACIN (500MG) 500 MG TABLET PO SCH (09:46)
[2017-01-21] MEDS: METOLAZONE 2.5 MG TABLET PO SCH (09:46)
[2017-01-21] MEDS: METOPROLOL SUCCINATE 50 MG TAB.SR.24H PO SCH (09:47)
[2017-01-21] MEDS: PANTOPRAZOLE 40 MG TABLET.DR PO SCH (09:48)
--- NOTE | 2017-01-21 10:00 | NUR ---
ms rn patient refused to check on his buttocks for any redness, said he is ok.
--- NOTE | 2017-01-21 11:00 | NUR ---
MS COAT HANGER SHAPER MACHINE OPERATOR DONE W/ 1500ML OUTPUT,DENIES PAIN AT THIS TIME, BREATHING IMPROVED PER PATIENT.
[2017-01-21 16:00] VITALS: BP 100/72
[2017-01-21] MEDS: RIVAROXABAN 10 MG TABLET PO SCH (17:00)
--- NOTE | 2017-01-21 17:00 | NUR ---
MS RN PATIENT HAS SOME BLEEDING AT PENILE AREA,CN AWARE, WILL TEXT DR. GARCIA.ALL NEEDS ATTENDED.
--- NOTE | 2017-01-21 17:20 | NUR ---
MS COLIN SANCHEZ TEXT BACK W/ ORDER TO
--- NOTE | 2017-01-21 17:30 | NUR ---
MS COLIN GARCIA TEXT BACK W/ ORDER TO HOLD XACECILYTO.
--- NOTE | 2017-01-21 18:00 | NUR ---
ms amish max bariatric bed was delivered but patient refused, cn aware.
--- NOTE | 2017-01-21 19:05 | NUR ---
MS RN NOTES: RECEIVED PATIENT SITTING UP IN BED WATCHING TELEVISION. PT IS A/O X4. PT'S SKIN KEPT CLEAN, DRY, AND COMFORTABLE. CALL LIGHT WITHIN PT'S REACH. PT ON 2LPM VIA NASAL CANNULA AND TOLERATING WELL. BED KEPT IN LOCKED, LOWEST, POSITION, AND SIDE RAILS X 2 UP WITH HIGH JEONG'S. PT REFUSES TO BE TURNED AND REPOSITIONED. PT IS COMFORTABLE SITTING UP. IV ON RAIZA #20 AND IS PATENT AND INTACT. NO SIGNS OR SYMPTOMS OF DISTRESS NOTED. WILL CONTINUE TO MONITOR PT.
--- NOTE | 2017-01-21 19:28 | NUR ---
MS RN ON BED URINATING, BLEEDING SUBSIDED.
[2017-01-21 20:00] VITALS: BP 95/68
--- NOTE | 2017-01-21 20:00 | NUR ---
MS RN NOTES: PATIENT IS STATUS POST THORACENTESIS. SPECIMEN BOTTLES WERE FOUND IN PT'S SINK. THEY WERE PUT IN REFRIGERATOR. VERONICA (AM NURSE) IS TO FOLLOW UP AND APPLY PT LABELS ON THEM.
[2017-01-21 20:32] VITALS: BP 95/68
--- NOTE | 2017-01-21 20:49 | NUR ---
MS RN NOTES: SEEN SPECIMEN BOTTLE WITH THORACENTESIS FLUID IN THE PT'S SINK, CONTACTED LAB, WILL SEND THE SPECIMEN FOR CYTOLOGY, ANALYSIS AND CULTURE GRAM STAIN
--- NOTE | 2017-01-21 20:50 | NUR ---
ms rn notes; went to the lab talked to yanelis, she stated who was the rn present when the procedure is done, what time, what kind of procedure. the specimen bottle is not labeled, she stated, where did i get the specimen, and if im sure the specimen is for this patient, because technically it is not safe to bring the specimen without any label, just because we found the specimen inside room by the sink, although there's only one pt in the room, and even if pt had thoracentesis in am. the specimen bottle should be properly labeled, date time initial with the attending nurse who was present during the procedure. relayed to graphic design intern casie, stated to put the specimen bottle in the fridge and she will have graphic design intern marleny deal with it in am.
--- NOTE | 2017-01-22 04:00 | NUR ---
MS RN NOTES: OFFERED BED BATH TO THE PT, HOWEVER PT STATED HE WOULD PREFER GALO THE DAY COSTUME MAKER TO DO BED BATH FOR HIM, BECAUSE GALO ABLE TO STAND HIM ON THE BED SIDE, DISCUSS WITH THE PT REGARDING RISK OF HELPING HIM STAND, WE DONT WANT PT TO FALL, EXPLAINED THAT WE CAN PROVIDE BED BATH IN THE BED, PT REFUSED,
--- NOTE | 2017-01-22 04:57 | NUR ---
MS RN NOTES; PT CALLED C/O HE'S SHORT OF BREATH, CHECK OXYGENATION STATUS AND REVEAL 91% ON 4L OXYGEN, RECHECK VS AND REVEAL 107/61, HR 73, RR 21, SPO2 94-95% , WILL CONTINUE TO MONITOR PT Addendum: 01/22/17 at 0500 by PERFECTO MAYNARD RN CORRECTION OF ENTRY: 2L OF OXYGEN NOT 4
[2017-01-22 04:59] VITALS: BP 107/61
[2017-01-22 07:07] LABS: CALCIUM, SERUM 8.5 mg/dL (8.5-10.1); CREATININE 1.4 mg/dL (0.6-1.3); POTASSIUM 4.4 mmol/L (3.5-5.1)
--- NOTE | 2017-01-22 07:11 | NUR ---
MS RN CLOSING NOTES PT IS SITTING UP IN BED AND IS DOZING OFF INTERMITTENTLY. PT IS A/O X4. PT'S SKIN KEPT CLEAN, DRY, AND COMFORTABLE. CALL LIGHT WITHIN PT'S REACH. PT ON 2LPM VIA NASAL CANNULA AND TOLERATING WELL. BED KEPT IN LOCKED, LOWEST, POSITION, AND SIDE RAILS X 2 UP WITH HIGH JEONG'S. PT IS COMFORTABLE SITTING UP AND REFUSES TO BE TURNED AND REPOSITIONED. IV ON RAIZA #20 AND IS PATENT AND INTACT. NO SIGNS OR SYMPTOMS OF DISTRESS NOTED. PT DID NOT HAVE ANY BLOOD IN URINE. THIS WAS MONITORED THROUGHOUT SHIFT. 490 ML WAS THE OUTPUT FROM THE URINAL. WILL ENDORSE TO AM NURSE FOR CONTINUITY OF CARE.
--- NOTE | 2017-01-22 07:15 | NUR ---
MS RN NOTES RECEIVED PATIENT AWAKE, SITTING UP IN BED. ON OXYGEN AT 2L/MIN VIA NC, POST THORACENTESIS YESTERDAY. NO SOB NOTED. IV IN RAIZA G20 PATENT AND INTACT, FLUSHES WELL. NO C/O PAIN AT THIS TIME. CALL LIGHT WITHIN REACH. WILL CONT TO MONITOR.
[2017-01-22 08:00] VITALS: BP 105/46
--- NOTE | 2017-01-22 08:00 | NUR ---
ELEVATED CARBON DIOXIDE 45, DR. GARCIA MADE AWARE. HE WILL SEE THE PATIENT TODAY.
--- NOTE | 2017-01-22 08:30 | NUR ---
PER DR. GARCIA, FLUIDS FROM THORACENTESIS DOES NOT NEED TO CHECK FOR BODY FLUID ANALYSIS, CHARGE NURSE IS AWARE.
[2017-01-22] MEDS: LEVOFLOXACIN (500MG) 500 MG TABLET PO SCH (08:52)
[2017-01-22] MEDS: PANTOPRAZOLE 40 MG TABLET.DR PO SCH (08:55)
[2017-01-22] MEDS: POTASSIUM CHLORIDE 20 MEQ TAB.PRT.SR PO SCH (08:55)
[2017-01-22] MEDS: FUROSEMIDE 40 MG/4 ML VIAL IV SCH ×3 (08:55→17:47)
[2017-01-22] MEDS: METOLAZONE 2.5 MG TABLET PO SCH (08:55)
[2017-01-22] MEDS: ALLOPURINOL 100 MG TABLET PO SCH (08:55)
[2017-01-22] MEDS: METOPROLOL SUCCINATE 50 MG TAB.SR.24H PO SCH (08:56)
--- NOTE | 2017-01-22 09:42 | NUR ---
US GUIDED THORACENTESIS-LEFT, PATIENT CONSENTED THE PROCEDURE.
--- NOTE | 2017-01-22 10:57 | NUR ---
POST LEFT THORACENTESIS BY SACHA GARCIA WITH 1500ML FLUID DRAINAGE OUTPUT, BROWNISH COLOR. XRAY CHEST STAT ORDERED.
[2017-01-22 16:00] VITALS: BP 117/65
[2017-01-22] MEDS: RIVAROXABAN 10 MG TABLET PO SCH (17:47)
--- NOTE | 2017-01-22 17:54 | NUR ---
XARELTO WAS HELD YESTERDAY DUE TO SOME PENILE BLEEDING YESTERDAY. NO EPISODE OF BLEEDING IN PENILE AREA SINCE THIS MORNING. ADMINISTERED DUE DOSE OF XARELTO ORDERED.
--- NOTE | 2017-01-22 18:37 | NUR ---
MS RN CLOSING NOTES PATIENT IN BED, NOT IN DISTRESS. POST LEFT THORACENTESIS TODAY WITH NO S/S OF ADVERSE REACTION, EPISODE OF NON PRODUCTIVE COUGH, NO SOB NOTED. PATIENT HAD BOWEL MOVEMENT TODAY, VOIDED WITHOUT DIFFICULTY. NO C/O PAIN AT THIS TIME. CALL LIGHT WITHIN REACH. FOR XRAY CHEST TOMORROW ORDERED. WILL ENDORSE TO TRIAL MANAGEMENT ASSOCIATE RN FOR CONTINUITY OF CARE.
--- NOTE | 2017-01-22 19:30 | NUR ---
MS RN NOTE RECEIVED PATIENT FROM DAY SHIFT, PATIENT IS ALERT AND ORIENTEDX4, ON BED REST, DENIES SOB OR PAIN AT THIS TIME. IV ON LEFT UPPER ARM IS PATENT AND INTACT, HL ONLY. SRX2, BED IN LOW POSITION, CALL LIGHT WITHIN REACH, WILL CONTINUE TO MONITOR PATIENT.
[2017-01-22 20:00] VITALS: BP 113/62
--- NOTE | 2017-01-23 06:47 | NUR ---
MS RN NOTE PATIENT IS RESTING IN BED COMFORTABLY, DENIES RESPIRATORY DISTRESS OR PAIN AT THIS TIME. NO ACUTE DISTRESS NOTED DURING THE DEODORIZER OPERATOR, WILL ENDORSE TO DAY SHIFT FOR MAR.
--- NOTE | 2017-01-23 07:30 | NUR ---
ms rn Initial notes Received patient in bed, awake, head of bed elevated, no SOB or distress noted, on 02 @ 23lpm via NC and tolerated well. Patient is alert and oriented x 4, verbally responsive and able to make needs known. IV intact on the RAIZA G20 HL only. Kept patient clean and comfortable in bed, call light with in patient reach, will continue to monitor accordingly.
[2017-01-23 08:00] VITALS: BP_SYST 110; BP_SYST 168; BP_DIAS 61; BP_DIAS 84
[2017-01-23 08:22] LABS: CALCIUM, SERUM 8.1 mg/dL (8.5-10.1); CREATININE 1.4 mg/dL (0.6-1.3); POTASSIUM 3.6 mmol/L (3.5-5.1)
--- NOTE | 2017-01-23 09:00 | NUR ---
ms rn notes Dr. Mccall came seen and examined the patient and informed regarding patient CO2 of 45 and made aware. Per MD its okay. Will continue to monitor accordingly.
[2017-01-23] MEDS: BUMETANIDE (1 MG) 1 MG TABLET PO SCH ×2 (09:17→16:30)
[2017-01-23] MEDS: METOPROLOL SUCCINATE 50 MG TAB.SR.24H PO SCH (09:18)
[2017-01-23] MEDS: ALLOPURINOL 100 MG TABLET PO SCH (09:18)
[2017-01-23] MEDS: LEVOFLOXACIN (500MG) 500 MG TABLET PO SCH (09:18)
[2017-01-23] MEDS: PANTOPRAZOLE 40 MG TABLET.DR PO SCH (09:18)
[2017-01-23] MEDS: METOLAZONE 2.5 MG TABLET PO SCH (09:18)
[2017-01-23] MEDS: POTASSIUM CHLORIDE 20 MEQ TAB.PRT.SR PO SCH (09:18)
[2017-01-23 16:00] VITALS: BP 120/79
[2017-01-23] MEDS: RIVAROXABAN 10 MG TABLET PO SCH (16:32)
--- NOTE | 2017-01-23 19:15 | NUR ---
RN NOTES RECEIVED PT AWAKE, HOB ELEVATED, APPEARS COMFORTABLE, NO SIGNS OF ACUTE DISTRESS NOTED WITH O2 INHALATION AT 3LPM VIA NC WITH GOOD SATURATION. PT ALERT AND ORIENTED X4, DENIES SOB AND VERBALIZING MILD MUSCLE SPASM ON BOTH LOWER EXTREMITY. IV ACCESS ON LEFT UPPER ARM PATENT AND INTACT. KEPT PT COMFORTABLE AND ATTENDED, WITH CALL LIGHT WITHIN REACH. WILL CONTINUE TO MONITOR PT.
--- NOTE | 2017-01-23 19:20 | NUR ---
ms rn closing notes All needs provided, attended, and anticipated. Kept patient clean and comfortable in bed, call light within patient reach, will continue to monitor accordingly. Endorsed to next shift RN to continue care.
[2017-01-23 20:33] VITALS: BP 91/60
[2017-01-23 22:00] VITALS: BP 91/60
--- NOTE | 2017-01-24 07:15 | NUR ---
RN NOTES PT AWAKE, SITTING IN BED, NO SOB, NOT IN DISTRESS, WITH O2 INHALATION AT 3LPM VIA NC TOLERATING WELL. PT COUGH AT TIMES, NON PRODUCTIVE. PER PT HE STARTED FEELING THE CHEST CONGESTION AGAIN AFTER THE THORACENTESIS. VITAL SIGNS STABLE, DENIES ANY PAIN. KEPT PT CLEAN AND DRY AND COMFORTABLE. ALL NEEDS ATTENDED. ENDORSE TO MORNING NURSE FOR CONTINUITY OF CARE.
[2017-01-24 07:33] LABS: CALCIUM, SERUM 8.3 mg/dL (8.5-10.1); CREATININE 1.5 mg/dL (0.6-1.3); POTASSIUM 3.3 mmol/L (3.5-5.1)
[2017-01-24 08:00] VITALS: BP_SYST 103; BP_SYST 137; BP_DIAS 60; BP_DIAS 71
--- NOTE | 2017-01-24 08:00 | NUR ---
m/s director of accounts receivable: notes pt refused to be turned or repositioned and refused full body assessment. instructed to call for assistance.
--- NOTE | 2017-01-24 08:05 | NUR ---
m/s search engine marketing strategist: notes dr. castillo here and made aware re: co2 result=50 with no new order at this time. no c/o sob or any resp. problem at this time. will monitor.
--- NOTE | 2017-01-24 08:20 | NUR ---
m/s clinical laboratory medical director: md visit seen and examined by dr. castillo with order to d'c to snf. pt doesn't want to go home and prefers snf. cn management will arrange snf placement. pt made aware.
[2017-01-24] MEDS ORDERED: BUME1TAB16 PO (08:21)
[2017-01-24] MEDS ORDERED: Potassium Chloride PO (08:21)
[2017-01-24] MEDS: METOPROLOL SUCCINATE 50 MG TAB.SR.24H PO SCH (09:00)
[2017-01-24] MEDS ORDERED: POTASSIUM CHLORIDE 20 MEQ TAB.PRT.SR PO ONE (09:00)
[2017-01-24] MEDS: POTASSIUM CHLORIDE 20 MEQ TAB.PRT.SR PO SCH (09:31)
[2017-01-24] MEDS: BUMETANIDE (1 MG) 1 MG TABLET PO SCH ×2 (09:31→16:21)
[2017-01-24] MEDS: PANTOPRAZOLE 40 MG TABLET.DR PO SCH (09:32)
[2017-01-24] MEDS: ALLOPURINOL 100 MG TABLET PO SCH (09:32)
[2017-01-24] MEDS: LEVOFLOXACIN (500MG) 500 MG TABLET PO SCH (09:32)
[2017-01-24] MEDS: METOLAZONE 2.5 MG TABLET PO SCH (09:32)
--- NOTE | 2017-01-24 10:00 | NUR ---
M/S DAIRY CATTLE FARMER: NOTES INCONTINENT OF BLADDER CARE RENDERED. PT REFUSED AM CARE EXCEPT FOR DIAPER CHANGE. PT ABLE TO TURN INDEPENDENTLY. INSTRUCTED TO CALL FOR ASSISTANCE. WILL CONTINUE TO MONITOR. Addendum: 01/24/17 at 1903 by RONNELL SMYTHN pt continue to refused to turned or repositioned when offered, pt just wants diaper change, pt able to turn self, but doesn't want to be positioned on the side.
--- NOTE | 2017-01-24 12:00 | NUR ---
M/S TECHNICAL SYSTEMS ARCHITECT: NOTES STILL AWAITING FOR SNF PLACEMENT. PT AWARE. NO C/O PAIN OR DISCOMFORT. WILL CONTINUE TO MONITOR. Addendum: 01/24/17 at 1903 by RONNELL SMYTHN pt continue to refused to turned or repositioned when offered, pt just wants diaper change, pt able to turn self, but doesn't want to be positioned on the side.
--- NOTE | 2017-01-24 14:00 | NUR ---
m/s phone manager: notes pt still refuses to be turned and repositioned on the side. pt prefers to lay supine. instructed to call for assistance. will monitor.
--- NOTE | 2017-01-24 15:30 | NUR ---
M/S COMPUTER SYSTEMS DESIGNER: NOTES MONET (CASE MANAGEMENT) CALLED AND INFORMED ME THAT PT HAS A BED AT [facility]. PT MADE AWARE AND WILL CALL HIS (WALI) RE: D'C TO [facility] AT 1700 STATED. INSTRUCTED TO CALL FOR ASSISTANCE. WILL MONITOR.
--- NOTE | 2017-01-24 15:55 | NUR ---
m/s realtime court reporter: notes louis (case management) here and informed me there a change of snf to go to and pt made aware. pt will call again to let her know about [facility].
[2017-01-24 16:00] VITALS: BP 108/66
--- NOTE | 2017-01-24 16:00 | NUR ---
m/s triage rn: notes report given to nika (rn) for continuity of care at [facility].
[2017-01-24] MEDS: RIVAROXABAN 10 MG TABLET PO SCH (16:22)
--- NOTE | 2017-01-24 16:30 | NUR ---
M/S INFORMATION SYSTEMS SUPERVISOR: D'C INSTRUCTIONS DISCHARGED INSTRUCTIONS GIVEN TO PT AND VERBALIZED UNDERSTANDING. EARLY DINNER TRAY ORDERED. INSTRUCTED TO CALL FOR ASSISTANCE. WILL MONITOR.
--- NOTE | 2017-01-24 17:00 | NUR ---
M/S THAW SHED HEATER TENDER: NOTES VICKI FROM [facility] CALLED AND INFORMED ME THAT THEY ARE RUNNING LATE. PT MADE AWARE.
--- NOTE | 2017-01-24 18:10 | NUR ---
M/S HUC OB: NOTES AMBULANCE HERE AND REPORT GIVEN TO ONE OF THE CREW. H/L REMOVED WITH TIP INTACT WITH NO BLEEDING, NO REDNESS, AND NO SWELLING NOTED.
--- NOTE | 2017-01-24 18:24 | NUR ---
M/S COSMETOLOGY TEACHER: DISCHARGED DISCHARGED TO SNF VIA AMBULANCE IN STABLE CONDITION WITH ALL D'C PAPERS, MEDS, AND BELONGINGS ACCOMPANIED BY 2 AMBULANCE CREW.
== END 2017-01-24 18:30 | DRG 194 ==
LOC: ER 16:28 → MED 01-21 00:38
PROVIDERS: ADMIT Internal Medicine; ATTEND Internal Medicine
DX: I11.0 Hypertensive heart disease with heart failure (principal); E87.2 Acidosis; E44.1 Mild protein-calorie malnutrition; E66.2 Morbid (severe) obesity with alveolar hypoventilation; I50.33 Acute on chronic diastolic (congestive) heart failure; I48.91 Unspecified atrial fibrillation; D64.9 Anemia, unspecified; I87.2 Venous insufficiency (chronic) (peripheral); K21.9 Gastro-esophageal reflux disease without esophagitis; Z68.44 Body mass index [BMI] 60.0-69.9, adult; I87.8 Other specified disorders of veins; Z79.01 Long term (current) use of anticoagulants; Z79.899 Other long term (current) drug therapy
CPT/HCPCS: 36415; 71010-TC; 76942-TC; 80048-TC; 80076-TC; 83880; 84484-TC; 85025-TC; 85730-TC; 87081-TC; A4606; A6403; J1940; Z7610

== ENCOUNTER 2017-03-11 22:55 | Inpatient (IN) | payer MEDICAID ==
[~2017-03-11] VITALS: Ht 188 cm; Wt 164.2 kg
[~2017-03-11 22:55] MED LIST changes: +BUME1TAB16 PO; -FURO-144 PO; -LEVO500T15 PO; -POTA10TA10 PO; +Potassium Chloride PO
[2017-03-11] MEDS ORDERED: IV NS 0.9% 1,000 ML BAG IV ONE ×2 (23:00→23:30)
--- NOTE | 2017-03-11 23:01 | NUR ---
SVETLANA MARTEL FROM HOME; OVERDOSE ON ENALAPRIL. PLACED ON MONITOR. GOWNED PT. AWAITING MD ORDER.
--- NOTE | 2017-03-11 23:01 | NUR ---
PT HAS RAIZA #20 IV ACCESS.
--- NOTE | 2017-03-11 23:02 | NUR ---
DR. DYER AT BEDSIDE FOR EVAL.
[2017-03-11] MEDS ORDERED: IV SET PRIMARY PUMP SET 1 EA INFUS.SET MC ONE (23:05)
[2017-03-11] MEDS ORDERED: IV NS 0.9% 1,000 ML ONE ×2 (23:05→23:30)
--- NOTE | 2017-03-11 23:07 | NUR ---
EKG IN PROGRESS.
[2017-03-11] MEDS ORDERED: ONDANSETRON HCL/PF 4 MG/2 ML VIAL ONE (23:25)
[2017-03-11 23:29] LABS: EOSINOPHILS # (AUTO) 0.1 /CMM (0.0-0.7); EOSINOPHILS % (AUTO) 1.1 % (0.0-6.0); HEMATOCRIT 34 % (39-51); HEMOGLOBIN 11.1 g/dL (13.5-17.5); LYMPHOCYTES # (AUTO) 0.6 /CMM (0.8-4.8); LYMPHOCYTES % (AUTO) 5.3 % (20.0-44.0); MEAN CORPUSCULAR HEMOGLOBIN 27 PG (26.0-33.0); MEAN CORPUSCULAR HGB CONC 33 g/dl (31.0-36.0); MEAN CORPUSCULAR VOLUME 82 fL (80-96); MONOCYTES % (AUTO) 9.1 % (2.0-12.0); NEUTROPHILS # (AUTO) 9.7 /CMM (1.8-8.9); NEUTROPHILS % (AUTO) 84.5 % (43.0-81.0); PLATELET COUNT (AUTO) 179 /CMM (150-450); RDW COEFFICIENT OF VARIATION 17.6 (11.5-15.0); RED BLOOD CELL COUNT(AUTO) 4.08 MIL/uL (4.5-6.0); WHITE BLOOD COUNT (AUTO) 11.4 K/uL (4.3-11.0)
[2017-03-11] MEDS ORDERED: ONDANSETRON HCL/PF 4 MG/2 ML VIAL IV ONE (23:30)
[2017-03-11] MEDS ORDERED: IV SET PRIMARY 1 EA INFUS.SET MC ONE (23:30)
[2017-03-11 23:38] LABS: INR 1.12 (0.87-1.13); PROTHROMBIN TIME 12.1 SECS (9.5-12.7)
[2017-03-11 23:42] LABS: ALANINE AMINOTRANSFERASE 74 U/L (12-78); ALBUMIN 2.5 g/dL (3.4-5.0); ALKALINE PHOSPHATASE 72 U/L (46-116); ASPARTATE AMINOTRANSFERASE 40 U/L (15-37); BILIRUBIN,DIRECT 0.6 mg/dL (0.0-0.2); BILIRUBIN,TOTAL 1.2 mg/dL (0.2-1.0); CALCIUM, SERUM 8.2 mg/dL (8.5-10.1); CARBON DIOXIDE 26 mmol/L (21-32); CHLORIDE 92 mmol/L (98-107); CREATININE 2.8 mg/dL (0.6-1.3); GLUCOSE 110 mg/dL (74-106); POTASSIUM 4.3 mmol/L (3.5-5.1); SODIUM SERUM 126 mmol/L (136-145); TOTAL PROTEIN, SERUM 6.8 g/dL (6.4-8.2)
[2017-03-11 23:43] LABS: ACETAMINOPHEN 0 ug/ml (10-30); ALCOHOL, BLOOD < 3 mg/dL (0-0); SALICYLATE 2.2 mg/dL (2.8-20.0)
[2017-03-11 23:47] LABS: UREA NITROGEN, BLOOD 92 mg/dL (7-18)
--- NOTE | 2017-03-11 23:55 | NUR ---
URINE COLLECTED. CALLED LAB FOR MANAGER METAL.
[2017-03-12] VITALS (81 sets, daily range): BP systolic 68–128; BP diastolic 36–76
--- NOTE | 2017-03-12 00:23 | NUR ---
GOMEZ PATRICIA AT BEDSIDE FOR CENTRAL LINE.
[2017-03-12] MEDS ORDERED: IV D5W 500 ML IV ONE (00:31)
[2017-03-12] MEDS ORDERED: NOREPINEPHRINE 4 MG/4 ML AMPUL IV ONE (00:31)
[2017-03-12] MEDS ORDERED: IV SET PRIMARY PUMP SET 1 EA INFUS.SET MC ONE ×2 (00:31→02:32)
[2017-03-12 00:33] LABS: APPEARANCE,URINE SL CLOUDY (CLEAR); BILIRUBIN,URINE NEGATIVE (NEGATIVE); BLOOD, URINE 3+ Ery/uL (NEGATIVE); COLOR,URINE YELLOW (YELLOW); KETONES,URINE NEGATIVE (NEGATIVE); LEUKOCYTE ESTERASE ,URINE NEGATIVE (NEGATIVE); NITRITE, URINE NEGATIVE (NEGATIVE); PH,URINE 5.5 (5.0-8.0); PROTEIN,URINE NEGATIVE (NEGATIVE); UGLUCOSE NEGATIVE (NEGATIVE)
[2017-03-12] MEDS ORDERED: ONDANSETRON HCL/PF 4 MG/2 ML VIAL ONE ×2 (00:35→01:14)
[2017-03-12 00:41] LABS: BACTERIA,URINE None seen /HPF (None Seen); WBC,URINE NONE SEEN /HPF (0-3)
[2017-03-12 00:42] LABS: SQUAMOUS EPITHELIAL CELL,UR Moderate /HPF (None Seen)
[2017-03-12] MEDS: NOREPINEPHRINE 8 MG in IV D5W 500 ML IV PRN ×2 (00:51→15:35)
--- NOTE | 2017-03-12 00:57 | NUR ---
PT ASSIGNED TO 254 ICU
[2017-03-12] MEDS ORDERED: ONDANSETRON HCL/PF 4 MG/2 ML VIAL IV ONE ×2 (01:00→01:30)
--- NOTE | 2017-03-12 01:09 | NUR ---
REPORT GIVEN TO COLIN MUNGUIA FOR ICU BED 254
[2017-03-12] MEDS ORDERED: ONDANSETRON HCL/PF 4 MG/2 ML VIAL IV PRN (01:30)
--- NOTE | 2017-03-12 01:48 | NUR ---
DR. DYER SPEAKING TO DR. VUONG REGARDING ADMISSION.
--- NOTE | 2017-03-12 01:55 | NUR ---
DYNAMOMETER REPAIRER: PT RECEIVED A/O X 4. ON 2L 02 VIA NC WT NO ACUTE DISTRESS. NO C/O PAIN. ON LEVOPHED 6MCG/MIN TO KEEP SBP ABOVE 90. SR ON MONITOR. AFEBRILE. PT SAID HE TOOK A HANDFUL OF ENALAPRIL PILLS BUT CALLED HIS EX IMMEDIATELY TO SEEK MEDICAL HELP. PER PT, IT WAS THE FIRST TIME THAT HE TRIED TO COMMIT SUICIDE EX TOLD HIM TO FIND A PLACE TO LIVE & HE GOT OVERWHELMED. PER PT, HE REGRETTED WHAT HE DID AND HAS NO MORE PLANS OF HURTING HIMSELF. FREQUENT MONITORING DONE. SAFETY PRECAUTION NOTED. WILL CONTINUE TO MONITOR. Addendum: 03/12/17 at 0702 by NILDA SAUER RN CORRECTION: Yolanda AMOR NOTED ON MONITOR.
--- NOTE | 2017-03-12 02:04 | NUR ---
PT TRASNFERED PER ACLS PROTOCOL.
[2017-03-12] MEDS ORDERED: MAG HYDROX/AL HYDROX/SIMETH 30 ML UDC PO PRN (02:30)
[2017-03-12] MEDS ORDERED: ACETAMINOPHEN 325 MG TABLET PO PRN (02:30)
[2017-03-12] MEDS ORDERED: HYDROCODONE/APAP 5/325MG 1 EACH TABLET PO PRN (02:30)
[2017-03-12] MEDS ORDERED: MAGNESIUM HYDROXIDE 30 ML UDC PO PRN (02:30)
[2017-03-12] MEDS ORDERED: IV NS 0.9% 1,000 ML ONE (02:32)
[2017-03-12] MEDS: IV NS 0.9% 1,000 ML IV PRN ×3 (02:39→22:04)
--- NOTE | 2017-03-12 03:33 | NUR ---
DIVISION PLANT ENGINEER: DR. VUONG AT BEDSIDE TO EXAMINE AND EVALUATE PATIENT.
--- NOTE | 2017-03-12 06:50 | NUR ---
IMPLEMENTATION ARCHITECT: REMAINED A/O X4. STILL ON 2L O2 VIA NC. ON LEVOPHED 4MCG/MIN. A. FIB ON MONITOR. NO SUICIDAL IDEATION NOTED THROUGHOUT THE SHIFT. COOPERATIVE WT CARE. FREQUENT VISUAL CHECKS DONE. SAFETY PRECAUTION NOTED AT ALL TIMES.
--- NOTE | 2017-03-12 07:10 | NUR ---
RN INITIAL NOTES RECEIVED PT AWAKE, A/OX4. NO RESPIRATORY DISTRESS NOTED. NO SOB NOTED. ON 2LPM VIA NC. DENIES ANY PAIN. IV LINES IN PLACE. RIJ IN PLACE. ON NS AT 100ML/HR. ON LEVO AT 4MCG/MIN, BP CLOSELY MONITOR. PT ON NPO. PT COMFORTABLE. CALL LIGHT WITHIN REACH. WILL MONITOR.
[2017-03-12] MEDS: ALLOPURINOL 100 MG TABLET PO SCH (08:32)
[2017-03-12] MEDS: ONDANSETRON HCL/PF 4 MG/2 ML VIAL IVP PRN (09:02)
[2017-03-12] MEDS: PANTOPRAZOLE 40 MG TABLET.DR PO SCH (09:02)
--- NOTE | 2017-03-12 09:40 | NUR ---
RN NOTES SEEN AND EXAMINED BY CHRISTOPHER ELLISON NP. AWARE OF CURRENT LAB VALUES AND CXR RESULT. SUGGESTED TO PULL OUT RIJ TLC. TOMMY CONTEH,DNP NOTIFIED TOO. PT AWAKE, A/OX4. NO SUICIDAL IDEATION NOTED. DENIES PAIN. ON LEVO AT 4MCG/MIN, WILL TITRATE ACCORDINGLY. WITH ORDERS NOTED AND CARRIED OUT.
[2017-03-12 10:06] LABS: BASOPHILS % (AUTO) 0.2 % (0.0-2.0); EOSINOPHILS % (AUTO) 0.5 % (0.0-6.0); HEMATOCRIT 34 % (39-51); HEMOGLOBIN 10.9 g/dL (13.5-17.5); LYMPHOCYTES # (AUTO) 0.5 /CMM (0.8-4.8); LYMPHOCYTES % (AUTO) 5.5 % (20.0-44.0); MEAN CORPUSCULAR HEMOGLOBIN 27 PG (26.0-33.0); MEAN CORPUSCULAR HGB CONC 32 g/dl (31.0-36.0); MEAN CORPUSCULAR VOLUME 83 fL (80-96); MONOCYTES # (AUTO) 0.6 /CMM (0.1-1.30); NEUTROPHILS % (AUTO) 86.8 % (43.0-81.0); PLATELET COUNT (AUTO) 175 /CMM (150-450); RDW COEFFICIENT OF VARIATION 17.8 (11.5-15.0); RED BLOOD CELL COUNT(AUTO) 4.03 MIL/uL (4.5-6.0); WHITE BLOOD COUNT (AUTO) 9.2 K/uL (4.3-11.0)
--- NOTE | 2017-03-12 10:10 | NUR ---
RN NOTES SEEN AND EXAMINED BY DR. MEDEIROS. AWARE OF CURRENT LAB VALUES AND CXR RESULT. NO ORDER MADE
[2017-03-12 10:21] LABS: ALBUMIN 2.4 g/dL (3.4-5.0); BILIRUBIN,DIRECT 0.6 mg/dL (0.0-0.2); CALCIUM, SERUM 8.1 mg/dL (8.5-10.1); CREATININE 2.3 mg/dL (0.6-1.3); POTASSIUM 4.3 mmol/L (3.5-5.1); TOTAL PROTEIN, SERUM 6.5 g/dL (6.4-8.2)
[2017-03-12 11:09] LABS: TROPONIN I < 0.017 ng/mL (0.00-0.056)
[2017-03-12 11:11] LABS: CHOLESTEROL 88 mg/dL (<200); FERRITIN 526 ng/mL (8-388); HDL CHOLESTEROL 27 mg/dL (40-60); LDL 46 mg/dL (0-99); THYROID STIMULATING HORMONE 3.448 uIU/mL (0.358-3.74); TRIGLYCERIDES 54 mg/dL (30-150)
[2017-03-12 12:05] LABS: IRON, SERUM 36 ug/dl (50-175); TOTAL IRON BINDING CAPACITY 204 ug/dl (250-450)
--- NOTE | 2017-03-12 15:23 | NUR ---
PT REFUSES BARIMAX BED WHICH HE IS FAMILIAR WITH FROM OTHER HOSPITALIZATIONS IT IS TOO UNCOMFORTABLE. . INSISTS ON GETTING OOB TO CHAIR WHICH WE HELPED HIM DO WITHOUT PROBLEM. FOR Mikal GILLESPIE
--- NOTE | 2017-03-12 15:50 | NUR ---
COLIN NOTES RIJ TLC ADJUSTED BY THONG SHAW. STAT CXR ORDERED. AWAITING FOR RESULT. WILL MONITOR. Addendum: 03/12/17 at 1609 by ISHAN MASSEY RN CXR RESULT SHOWS TIP OF RIJ TLC IS NOW OVERLYING THE UPPER RIGHT ATRIUM. MD BARRON. WILL CONTINUE TO MONITOR.
[2017-03-12] MEDS ORDERED: RIVAROXABAN 10 MG TABLET PO SCH (17:00)
[2017-03-12] MEDS: RIVAROXABAN 10 MG TABLET PO SCH (17:01)
--- NOTE | 2017-03-12 18:41 | NUR ---
RN CLOSING NOTES PT REMAINS STABLE. NO SIGNIFICANT CHANGE NOTED. DENIES ANY PAIN. NO RESPIRATORY DISTRESS NOTED. NO SOB NOTED. IV LINES IN PLACE. STILL ON LEVO, TITRATED. KEPT CLEAN AND DRY. ASSISTANCE PROVIDED. ALL NEEDS ATTENDED AND MET. CALL LIGHT WITHIN REACH. WILL ENDORSE FOR CONTINUITY OF CARE.
--- NOTE | 2017-03-12 19:30 | NUR ---
SLASHER HAND: LEVOPHED INCREASED TO 6MCG/MIN FOR SBP BELOW 90. PT SAID HE KNOWS WHEN BP IS LOW HE FEELS DIZZY. WILL CONTINUE TO TITRATE NEEDED. REMAINED IN BED ON SEMI-JEONG'S. A/O X 3. NO SUICIDAL IDEATIONS. SAFETY PRECAUTION NOTED. WILL CONTINUE TO MONITOR.
--- NOTE | 2017-03-12 23:20 | NUR ---
CATERING COOK: SATHISH FROM POISON CONTROL CALLED AND UPDATED PT STATUS. NO MAR AT THIS TIME. STILL ON LEVOPHED GTT AT 6MCG/MIN. NO NEW ORDERS AT THIS TIME.
[2017-03-13] VITALS (76 sets, daily range): BP systolic 80–156; BP diastolic 25–84
[2017-03-13 04:55] LABS: BASOPHILS % (AUTO) 0.2 % (0.0-2.0); HEMATOCRIT 34 % (39-51); LYMPHOCYTES # (AUTO) 0.5 /CMM (0.8-4.8); LYMPHOCYTES % (AUTO) 4.9 % (20.0-44.0); MEAN CORPUSCULAR HEMOGLOBIN 27 PG (26.0-33.0); MEAN CORPUSCULAR HGB CONC 33 g/dl (31.0-36.0); MEAN CORPUSCULAR VOLUME 83 fL (80-96); MONOCYTES # (AUTO) 0.7 /CMM (0.1-1.30); NEUTROPHILS # (AUTO) 8.2 /CMM (1.8-8.9); NEUTROPHILS % (AUTO) 87.9 % (43.0-81.0); PLATELET COUNT (AUTO) 176 /CMM (150-450); RED BLOOD CELL COUNT(AUTO) 4.08 MIL/uL (4.5-6.0); WHITE BLOOD COUNT (AUTO) 9.4 K/uL (4.3-11.0)
[2017-03-13 05:11] LABS: CALCIUM, SERUM 8.2 mg/dL (8.5-10.1); MAGNESIUM 2.2 mg/dL (1.8-2.4); PHOSPHORUS 3.7 mg/dL (2.5-4.9); POTASSIUM 4.3 mmol/L (3.5-5.1)
--- NOTE | 2017-03-13 06:45 | NUR ---
LEATHER GOODS I ASSEMBLER: NO SIGNIFICANT MAR DURING THE SHIFT. STILL ON LEVOPHED AT 6 MCG/MIN. NO SUICIDAL IDEATION. FREQUENT VISUAL CHECKS DONE. SAFETY PRECAUTION NOTED AT ALL TIMES.
--- NOTE | 2017-03-13 07:05 | NUR ---
RN INITIAL NOTES RECEIVED PT AWAKE, A/OX4. NO RESPIRATORY DISTRESS NOTED. NO SOB NOTED. ON 2LPM VIA NC. DENIES ANY PAIN. IV LINES IN PLACE. RIJ IN PLACE. ON NS AT 100ML/HR. ON LEVO AT 6MCG/MIN, BP CLOSELY MONITOR. WILL TITRATE ACCORDINGLY. PT COMFORTABLE. CALL LIGHT WITHIN REACH. WILL MONITOR.
[2017-03-13] MEDS ORDERED: PANTOPRAZOLE 40 MG TABLET.DR PO SCH (07:30)
--- NOTE | 2017-03-13 07:40 | NUR ---
RN NOTES SEEN AND EXAMINED BY DR. MEDERIOS. AWARE OF CURRENT LAB VALUES. ON LEVO AT 6MCG/MIN. NO RESPIRATORY DISTRESS NOTED. NO SOB NOTED. DENIES ANY PAIN. MD ORDERED STAT ECHO AND LABS IN AM. NOTED AND CARRIED OUT.
[2017-03-13] MEDS: PANTOPRAZOLE 40 MG TABLET.DR PO SCH (08:11)
[2017-03-13] MEDS: ALLOPURINOL 100 MG TABLET PO SCH (08:11)
[2017-03-13] MEDS: IV NS 0.9% 1,000 ML IV PRN ×2 (08:12→17:02)
[2017-03-13] MEDS ORDERED: IV NS 0.9% 500 ML IV ONE (09:41)
--- NOTE | 2017-03-13 10:15 | NUR ---
RN NOTES SEEN AND EXAMINED BY DR. ADWOA HERNANDEZ. AWARE OF CURRENT LAB VALUES. NO NEW ORDER.
--- NOTE | 2017-03-13 11:30 | NUR ---
RN NOTES PT CONNECTED TO CVP, 10. ON NS AT 100ML/HR. ON LEVO AT 5MCG/MIN, TITRATED ACCORDINGLY. BP CLOSELY MONITORED. EF 55% ON ECHO. LABS ORDERED. DR. MEDEIROS NOTIFIED. NO ADDITIONAL ORDER.
[2017-03-13] MEDS: NOREPINEPHRINE 8 MG in IV D5W 500 ML IV PRN (13:02)
[2017-03-13] MEDS ORDERED: NOREPINEPHRINE 8 MG in IV D5W 500 ML IV PRN (13:30)
[2017-03-13] MEDS: RIVAROXABAN 10 MG TABLET PO SCH (17:01)
--- NOTE | 2017-03-13 18:47 | NUR ---
RN CLOSING NOTES PT REMAINS STABLE. NO SIGNIFICANT CHANGE NOTED. DENIES ANY PAIN. NO RESPIRATORY DISTRESS NOTED. NO SOB NOTED. IV LINES IN PLACE. CVP INTACT. REMAINS ON LEVO. KEPT CLEAN AND DRY. ASSISTANCE PROVIDED. ALL NEEDS ATTENDED AND MET. CALL LIGHT WITHIN REACH. WILL ENDORSE FOR CONTINUITY OF CARE.
--- NOTE | 2017-03-13 19:30 | NUR ---
RN INITIAL NOTES RECEIVED PATIENT AWAKE IN BED, A/O X4. ON O2 VIA NC @ 2LPM, TOLERATING WELL, NO SOB OR RESPIRATORY DISTRESS NOTED AT THIS TIME. PATIENT DENIES ANY PAIN. IV LINES IN PLACE. RIJ IN PLACE, PATENT AND INTACT. IVF OF NS AT 100ML/HR. ON LEVO AT 7MCG/MIN, WILL MONITOR BP CLOSELY AND TITRATE ACCORDINGLY. PATIENT KEPT COMFORTABLE. CALL LIGHT WITHIN REACH.=, BED IN LOWEST AND LOCKED POSITION. WILL CONTINUE TO CLOSELY MONITOR.
[2017-03-14] VITALS (53 sets, daily range): BP systolic 74–132; BP diastolic 40–80
[2017-03-14] MEDS: IV NS 0.9% 1,000 ML IV PRN ×3 (02:38→20:51)
[2017-03-14 04:32] LABS: BASOPHILS % (AUTO) 0.6 % (0.0-2.0); HEMATOCRIT 34 % (39-51); HEMOGLOBIN 11.1 g/dL (13.5-17.5); LYMPHOCYTES # (AUTO) 0.5 /CMM (0.8-4.8); LYMPHOCYTES % (AUTO) 6.1 % (20.0-44.0); MEAN CORPUSCULAR HEMOGLOBIN 27 PG (26.0-33.0); MEAN CORPUSCULAR HGB CONC 33 g/dl (31.0-36.0); MEAN CORPUSCULAR VOLUME 83 fL (80-96); MONOCYTES # (AUTO) 0.6 /CMM (0.1-1.30); MONOCYTES % (AUTO) 7.1 % (2.0-12.0); NEUTROPHILS # (AUTO) 7.6 /CMM (1.8-8.9); NEUTROPHILS % (AUTO) 86.2 % (43.0-81.0); PLATELET COUNT (AUTO) 162 /CMM (150-450); RED BLOOD CELL COUNT(AUTO) 4.08 MIL/uL (4.5-6.0); WHITE BLOOD COUNT (AUTO) 8.8 K/uL (4.3-11.0)
[2017-03-14 04:46] LABS: ALBUMIN 2.2 g/dL (3.4-5.0); BILIRUBIN,TOTAL 0.8 mg/dL (0.2-1.0); CALCIUM, SERUM 7.8 mg/dL (8.5-10.1); CREATININE 1.7 mg/dL (0.6-1.3); MAGNESIUM 1.8 mg/dL (1.8-2.4); PHOSPHORUS 2.7 mg/dL (2.5-4.9); POTASSIUM 4.3 mmol/L (3.5-5.1); TOTAL PROTEIN, SERUM 6.3 g/dL (6.4-8.2)
[2017-03-14] MEDS ORDERED: NOREPINEPHRINE 4 MG/4 ML AMPUL IV ONE (05:08)
--- NOTE | 2017-03-14 06:25 | NUR ---
RN NOTES PATIENT SLEEPING IN BED, NO ACUTE DISTRESS NOTED AT THIS TIME, APPEARS COMFORTABLE. NO SUICIDAL IDEATION THROUGHOUT SHIFT. WOUND/SKIN ISSUES PHOTOGRAPHED AND DOCUMENTED PER PROTOCOL. LEVOPHED CONTINUES AT 14MCG. WILL ENDORSE THE PATIENT TO THE AM SHIFT NURSE FOR MAR
--- NOTE | 2017-03-14 08:07 | NUR ---
INITIAL MOLD INSERT CHANGER NOTE RCVD PT AWAKE AND ALERT SHOWING NO S/O DISTRESS OR C/O PAIN. PT VERBALIZES NO DESIRE TO ATTEMPT TO KILL SELF. AFIB ON TELE. TOLERATING O2 VIA NC. VOIDING TO URINAL. IV SITES C/D/I/PATENT. NO S/O INFILTRATION OR PHLEBITIS OBSERVED. WILL CONTINUE TO MONITOR PT FOR SAFETY AND COMFORT. CALL LIGHT WITHIN REACH. BED IN LOW AND LOCKED POSITION. PT EXPRESSES DESIRE TO REMAIN ON A REGULAR BED DESPITE WEIGHT OF >300LB.
[2017-03-14] MEDS: PANTOPRAZOLE 40 MG TABLET.DR PO SCH (08:20)
[2017-03-14] MEDS: ALLOPURINOL 100 MG TABLET PO SCH (08:20)
--- NOTE | 2017-03-14 11:04 | NUR ---
BOBBI received a voicemail from pt's Karolina requesting BOBBI to call back. BOBBI returned Karolina's call. Karolina informed BOBBI she was worried about the pt. but seems to be less worried since pt. is in the hospital and will be assessed by the psychiatrist. BOBBI informed Karolina she will be visiting the pt. today.
--- NOTE | 2017-03-14 11:11 | NUR ---
Social service consult requested by ICU RADHA Negron for an overdose/ suicidal ideation. Pt. was admitted to [facility] due to taking taking 30 tablets of enalapril. BOBBI and RN Rhianna met with pt. bedside. Pt. is alert and oriented x4. Pt. appeared sad and tearful while speaking to SW. SW provided emotional support and active listening. Pt. states he has been depressed for roughly two years when his health started to deteriorate. Pt. seemed remorseful regarding the suicidal attempt. Pt. informed SW he regretted his decision right after he took the pills. Pt. lives with is ex- Karolina and his [id number]. Pt. states that he did not get along with his [id number]-[id number], however he has different outlook on life. Pt. states his suicidal attempt has made him feel more hopeful and and brought him closer to the Lord. Pt. states he felt ashamed of what he did. Pt. denies suicidal/homicidal ideations and visual/auditory hallucinations at this time. Once pt. is medically and psychiatrically cleared, he will return home to his ex- Karolina. Pt. states he has a wheelchair, walker and hospital bed at home. Pt. has two step children ages 24 and 23. BOBBI spoke to RADHA Negron and requested a psychiatric consult for pt. at this time. BOBBI updated manufacturing director Waleska Cohn regarding pt's disposition.
--- NOTE | 2017-03-14 11:16 | NUR ---
WOUND CARE CONSULT PATIENT SEEN AND SKIN INTEGRITY ASSESSMENT DONE. PATIENT PRESENTS WITH BILATERAL PLANTAR FOOT CALLUS UNDER THE SMALL TOES, VENOUS STASIS DISCOLORATIONS TO THE BILATERAL LOWER LEGS, HEALED ABRASION TO THE KNEE REGION. ALSO PATIENT PRESENTS WITH SKIN BREAKDOWN TO THE GLUTEAL CREASE REGION DUE TO MOISTURE. RECOMMENDATIONS MAKE FOR SKIN MANAGEMENT, PATIENT CURRENTLY INDEPENDENT WITH BED MOBILITY AND ABLE TO REPOSITION SELF. PATIENT ON ESME ISOFLEX LOW AIRLOSS MATTRESS FOR MOISTURE MANAGEMENT,WT 348 LBS AND OK FOR THIS SPECIALTY BED. ALL DISCUSSED WITH NURSING AT THE BEDSIDE. RECOMMEND PODIATRY CONSULT, CALLED TO DR CARPIO PER DONOVAN ORANTES REQUEST. CURRENT GIANCARLO AT 19 PATIENT IS CONTINENT AND USES URINAL. AT TIMES SOME STOOL INCONT NOTED PER PATIENT. Addendum: 03/14/17 at 1122 by ANDRA DIAZ WNDNU Amended: Links added.
[2017-03-14] MEDS: NOREPINEPHRINE 16 MG in IV D5W 500 ML IV PRN (11:47)
[2017-03-14] MEDS: SENNOSIDES 8.6 MG TABLET PO SCH (11:58)
--- NOTE | 2017-03-14 12:02 | NUR ---
TIMBER POISONER NOTE SPOKE WITH KAEL MAN REGARDING PT'S CONDITION AND NEED FOR CVP MONITORING. HE AGREED TO DISCONTINUE. AT THIS TIME WILL CONTINUE WITH LEVO FOR PRESSURE SUPPORT DESPITE PT BEING ON AFIB HR UP TO 130's PER DONOVAN. WILL CONTINUE TO MONITOR.
--- NOTE | 2017-03-14 16:56 | NUR ---
SOLAR INSTALLATION SUPERVISOR NOTE PT EVAL COMPLETED. PT ABLE TO PERFORM EXERCISES WHILE IN BED. VITALS REMAIN STABLE.
[2017-03-14] MEDS: RIVAROXABAN 10 MG TABLET PO SCH (17:36)
--- NOTE | 2017-03-14 19:30 | NUR ---
RN INITIAL NOTES RECEIVED THE PATIENT AWAKE ON BED, A/O X3. ON 3L NASAL CANNULA SATURATING WELL. CURRENTLY AFIB ON THE MONITOR, HR 90-100'S; ON LEVO @ 10MCG/MIN. PT IS CONTINENT, ABLE TO USE URINAL AND BEDPAN. RIGHT IJ 3LUMEN WITH NS @ 100MLS/HR, LEFT WRIST 18G, BOTH FLUSHED AND PATENT, NO S/S OF INFILTRATION/INFECTION, DRESSING CDI. BED LOW AND LOCKED, SIDERAILS UP, ARSENIO LIGHT WITHIN REACH. WILL MONITOR
[2017-03-15] VITALS (74 sets, daily range): BP systolic 78–143; BP diastolic 33–120
[2017-03-15] MEDS: ZOLPIDEM TARTRATE 5 MG TABLET PO PRN (00:14)
[2017-03-15 04:48] LABS: BASOPHILS % (AUTO) 0.3 % (0.0-2.0); HEMATOCRIT 35 % (39-51); HEMOGLOBIN 11.2 g/dL (13.5-17.5); LYMPHOCYTES # (AUTO) 0.6 /CMM (0.8-4.8); LYMPHOCYTES % (AUTO) 6.2 % (20.0-44.0); MEAN CORPUSCULAR HEMOGLOBIN 27 PG (26.0-33.0); MEAN CORPUSCULAR HGB CONC 32 g/dl (31.0-36.0); MEAN CORPUSCULAR VOLUME 85 fL (80-96); MONOCYTES # (AUTO) 0.6 /CMM (0.1-1.30); MONOCYTES % (AUTO) 6.2 % (2.0-12.0); NEUTROPHILS # (AUTO) 7.9 /CMM (1.8-8.9); NEUTROPHILS % (AUTO) 87.3 % (43.0-81.0); PLATELET COUNT (AUTO) 151 /CMM (150-450); RDW COEFFICIENT OF VARIATION 17.9 (11.5-15.0); RED BLOOD CELL COUNT(AUTO) 4.09 MIL/uL (4.5-6.0)
[2017-03-15 05:12] LABS: ALBUMIN 2.2 g/dL (3.4-5.0); BILIRUBIN,TOTAL 0.6 mg/dL (0.2-1.0); CALCIUM, SERUM 7.8 mg/dL (8.5-10.1); CREATININE 1.3 mg/dL (0.6-1.3); MAGNESIUM 1.9 mg/dL (1.8-2.4); POTASSIUM 4.7 mmol/L (3.5-5.1); TOTAL PROTEIN, SERUM 6.2 g/dL (6.4-8.2)
[2017-03-15] MEDS: IV NS 0.9% 1,000 ML IV PRN ×2 (05:52→15:24)
--- NOTE | 2017-03-15 06:15 | NUR ---
RN CLOSING NOTES PT REMAINS STABLE OF THE MOMENT. ALL DUE MEDS GIVEN, AM CARE PROVIDED. WILL ENDORSE CONTINUITY OF CARE TO AM RN
--- NOTE | 2017-03-15 07:45 | NUR ---
INITIAL YARD INSPECTOR NOTE RCVD PT AWAKE AND ALERT SHOWING NO S/O DISTRESS OR C/O PAIN. AFIB ON MONITOR. TOLERATING O2 VIA NC. VOIDING TO URINAL. IV SITES C/D/I/PATENT. NO S/O INFILTRATION OR PHLEBITIS OBSERVED. WILL CONTINUE TO MONITOR PT FOR SAFETY AND COMFORT. CALL LIGHT WITHIN REACH. BED IN LOW AND LOCKED POSITION.
[2017-03-15] MEDS: SENNOSIDES 8.6 MG TABLET PO SCH (08:06)
[2017-03-15] MEDS: PANTOPRAZOLE 40 MG TABLET.DR PO SCH (08:06)
[2017-03-15] MEDS: ALLOPURINOL 100 MG TABLET PO SCH (08:06)
[2017-03-15] MEDS: NEUTRA PHOS 1 POWD.PACKET PO SCH ×2 (09:03→16:57)
[2017-03-15] MEDS: CHOLECALCIFEROL 1,000 UNIT TABLET (VIT D3) PO SCH (12:03)
[2017-03-15] MEDS: VENLAFAXINE XR 37.5 MG CAP.SR.24H PO SCH (12:04)
[2017-03-15] MEDS: NOREPINEPHRINE 16 MG in IV D5W 500 ML IV PRN (12:05)
--- NOTE | 2017-03-15 12:28 | NUR ---
PROJECT MANAGER INTERIOR DESIGN NOTE PT ABLE TO STAND UP AND WALK WITH WALKER WITH PHYSICAL THERAPIST ASSISTANCE. VITAL SIGNS REMAIN STABLE. PT TOLERATED WELL SITTING ON CHAIR. NOW PT BACK IN BED. WILL CONTINUE TO MONITOR.
[2017-03-15] MEDS: ONDANSETRON HCL/PF 4 MG/2 ML VIAL IVP PRN ×2 (15:13→20:32)
[2017-03-15] MEDS ORDERED: IV SET PRIMARY PUMP SET 1 EA INFUS.SET MC ONE (15:23)
[2017-03-15] MEDS: RIVAROXABAN 10 MG TABLET PO SCH (17:23)
--- NOTE | 2017-03-15 18:37 | NUR ---
COMMUNITY LIVING INSTRUCTOR NOTE PT'S CONDITION REMAINS STABLE. BREATHING WELL ON RA. NAUSEA HAS SUBSIDED. PT'S CARE WILL BE ENDORSED TO KEYBOARD TEACHER RN FOR CONTINUITY OF CARE. CALL LIGHT WITHIN REACH. BED IN LOW AND LOCKED POSITION.
--- NOTE | 2017-03-15 19:25 | NUR ---
RN INITIAL NOTES RECEIVED THE PATIENT AWAKE ON BED, A/O X3. ON 2L NASAL CANNULA SATURATING WELL. CURRENTLY AFIB ON THE MONITOR, HR 90-100'S; ON LEVO @ 2MCG/MIN. PT IS CONTINENT, ABLE TO USE URINAL AND BEDPAN. RIGHT IJ 3LUMEN WITH NS @ 100MLS/HR, LEFT WRIST 18G, BOTH FLUSHED AND PATENT, NO S/S OF INFILTRATION/INFECTION, DRESSING CDI. BED LOW AND LOCKED, SIDERAILS UP, ARSENIO LIGHT WITHIN REACH. WILL MONITOR
[2017-03-16] VITALS (19 sets, daily range): BP systolic 77–137; BP diastolic 49–100
--- NOTE | 2017-03-16 | NUR ---
RN NOTES PATIENT'S SBP HAS BEEN MAINTAINED > 100. SUNSHINE OROZCO DC'ED. WILL MONITOR CLOSELY
[2017-03-16] MEDS: IV NS 0.9% 1,000 ML IV PRN (00:14)
[2017-03-16] MEDS: ONDANSETRON HCL/PF 4 MG/2 ML VIAL IVP PRN ×2 (02:54→13:30)
[2017-03-16 04:55] LABS: BASOPHILS % (AUTO) 0.4 % (0.0-2.0); EOSINOPHILS # (AUTO) 0.1 /CMM (0.0-0.7); EOSINOPHILS % (AUTO) 1.6 % (0.0-6.0); HEMATOCRIT 32 % (39-51); HEMOGLOBIN 10.5 g/dL (13.5-17.5); LYMPHOCYTES # (AUTO) 0.4 /CMM (0.8-4.8); LYMPHOCYTES % (AUTO) 4.9 % (20.0-44.0); MEAN CORPUSCULAR HEMOGLOBIN 28 PG (26.0-33.0); MEAN CORPUSCULAR HGB CONC 32 g/dl (31.0-36.0); MEAN CORPUSCULAR VOLUME 85 fL (80-96); MONOCYTES # (AUTO) 0.4 /CMM (0.1-1.30); MONOCYTES % (AUTO) 5.5 % (2.0-12.0); NEUTROPHILS # (AUTO) 6.3 /CMM (1.8-8.9); NEUTROPHILS % (AUTO) 87.6 % (43.0-81.0); PLATELET COUNT (AUTO) 125 /CMM (150-450); RDW COEFFICIENT OF VARIATION 18.3 (11.5-15.0); RED BLOOD CELL COUNT(AUTO) 3.81 MIL/uL (4.5-6.0); WHITE BLOOD COUNT (AUTO) 7.2 K/uL (4.3-11.0)
[2017-03-16 05:18] LABS: CALCIUM, SERUM 7.8 mg/dL (8.5-10.1); CREATININE 1.1 mg/dL (0.6-1.3); POTASSIUM 5.1 mmol/L (3.5-5.1)
--- NOTE | 2017-03-16 06:00 | NUR ---
RN CLOSING NOTES PT REMAINS STABLE OF THE MOMENT. OFF LEVO DRIP SINCE MIDNIGHT. ALL DUE MEDS GIVEN, AM CARE PROVIDED. WILL ENDORSE CONTINUITY OF CARE TO AM RN
[2017-03-16] MEDS: CHOLECALCIFEROL 1,000 UNIT TABLET (VIT D3) PO SCH (08:04)
[2017-03-16] MEDS: PANTOPRAZOLE 40 MG TABLET.DR PO SCH (08:04)
[2017-03-16] MEDS: ALLOPURINOL 100 MG TABLET PO SCH (08:04)
[2017-03-16] MEDS: VENLAFAXINE XR 37.5 MG CAP.SR.24H PO SCH (08:04)
[2017-03-16] MEDS: SENNOSIDES 8.6 MG TABLET PO SCH (08:05)
[2017-03-16] MEDS ORDERED: IV NS 0.9% 1,000 ML IV PRN (08:29)
[2017-03-16] MEDS ORDERED: PROCHLORPERAZINE EDISYLATE 10 MG/2 ML VIAL IM PRN (08:30)
--- NOTE | 2017-03-16 08:50 | NUR ---
DR. MEDEIROS ORDERS OKAY TO TRANSFER TO [facility] WITH ALL MEDS. TRANFERRED VIA BED, ALL BELONGINGS BROUGHT WITH PATIENT TRANSFERRED WITH PATIENT INCLUDING CELLPHONE AND SCRAP BALER. HIS DENTURES ARE IN PLACE. HAD A LARGE BM BEFORE TRANSFER, TOLERATES BEDSIDE COMMODE TRANSFER.
--- NOTE | 2017-03-16 09:15 | NUR ---
MS RN NOTES RECEIVED REPORT ON PATIENT
--- NOTE | 2017-03-16 09:25 | NUR ---
MS RN NOTES RECEIVED PATIENT FROM ICU A/OX4 STATES ABD PAIN IS CHRONIC BUT TOLERABLE AT THIS TIME, NO SOB, DIFFICULTY BREATHING. ALL NEEDS ATTENDED TO AND PATIENT STATES NO NEEDS AT THIS TIME. LARRY DEY AT BEDSIDE. CALL LIGHT IN REACH, BED LOWERED AND LOCKED, RAILS UPX3 FOR SAFETY AND WILL ROUND Q2H OR LESS PER NEEDS.
--- NOTE | 2017-03-16 13:30 | NUR ---
MS RN NOTES MESSAGE TO DONOVAN IN RE TO GIGI STATED NOT HOLDABLE.
[2017-03-16] MEDS: PROCHLORPERAZINE EDISYLATE 10 MG/2 ML VIAL IM/IV PRN ×3 (14:30→23:29)
--- NOTE | 2017-03-16 15:34 | NUR ---
MS RN NOTES PATIENT STATES COMPAZINE HELPED WITH NAUSEA. SKIN CLEANSED AND BED BATH COMPLETED
--- NOTE | 2017-03-16 15:40 | NUR ---
MS SHAW NOTES PATIENT DESATS TO 88% WHEN LAYING ON SIDE. JAEL ARIVZU AT 2LPM Addendum: 03/16/17 at 1541 by KVNG COBB RN JAEL ROSS*
--- NOTE | 2017-03-16 15:46 | NUR ---
MS RN NOTES DONOVAN AWARE OF LOW BP. REPOSITIONED PATIENT WILL RECHECK. ASYMPTOMATIC. PATIENT STATES HE HAS NOT URINATED MUCH. BLADDER SCANNED AND LESS THAN 50 ML IN BLADDER. DONOVAN WILL SEE PATIENT.
[2017-03-16] MEDS: Z GUARD REMEDY 2 OZ OINT TP PRN (16:52)
[2017-03-16] MEDS: RIVAROXABAN 10 MG TABLET PO SCH (16:52)
--- NOTE | 2017-03-16 18:40 | NUR ---
MS RN CLOSING PATIENT STABLE. NO COMPLICATIONS. NAUSEA MANAGED WITH PRN MEDICATIONS. PATIENT NO LONGER NEEDING SITTER PER PSYCH. PATIENT DENIES SUICIDAL IDEATIONS. ALL DUE MEDS GIVEN AND ALL NEEDS MET. CALL LIGHT IN REACH, BED LOWERED AND LOCKED, RAILS UPX3 FOR SAFETY AND WILL ENDORSE TO COLIN ASTORGA FOR MAR
--- NOTE | 2017-03-16 19:29 | NUR ---
rn note; RECEIVED PT IN BED AWAKE AND ALERT. BREATHING EVENLY. NO SOB. NO DISTRESS. SKIN WARM AND DRY. DOPPLER US ON BLEs IN PROCESS AND TECH AT THE BED SIDE. NEEDS ATTENDED. CALL LIGHT WITHIN REACH. WILL CONT TO MONITOR.
--- NOTE | 2017-03-16 23:34 | NUR ---
COMPAZINE IV GIVEN ORDERED PER PT'S REQUEST FOR C/O NAUSEA. WILL CONT TO MONITOR.
[2017-03-17] MEDS: ZOLPIDEM TARTRATE 5 MG TABLET PO PRN (02:13)
--- NOTE | 2017-03-17 02:14 | NUR ---
ALLANIEN GIVEN PER PT'S REQUEST AND C/O INSOMNIA. ATTEMPTED TO AVOID SLEEPING MED LATE AT THIS TIME TO PREVENT BEING DROWSY DURING THE DAY BUT PT STATED HE'S NOT ABLE TO SLEEP AND REQUESTED THE SLEEPING AID. CALM, QUIET AND COMFORTABLE ENVIRONMENT WAS PROVIDED TO THE PT . WILL CONT TO MONITOR
--- NOTE | 2017-03-17 06:18 | NUR ---
RN NOTE; PT IN BED SLEEPING, AROUSES EASILY. BREATHING EVENLY. NO SOB. NAD. NO ACUTE EVENT DURING THE NIGHT. NO VERBALIZATION OF SUICIDAL ATTEMPTS OR PLAN. STATED WILLING TO GO HOME. ASSISTED W/ ADLS. CALL LIGHT WITHIN REACH. WILL CONT TO MONITOR AND WILL ENDORSE TO AM SHIFT FOR MAR.
[2017-03-17 06:34] LABS: BASOPHILS % (AUTO) 0.2 % (0.0-2.0); EOSINOPHILS # (AUTO) 0.1 /CMM (0.0-0.7); EOSINOPHILS % (AUTO) 1.6 % (0.0-6.0); HEMATOCRIT 32 % (39-51); HEMOGLOBIN 10.3 g/dL (13.5-17.5); LYMPHOCYTES # (AUTO) 0.3 /CMM (0.8-4.8); LYMPHOCYTES % (AUTO) 3.8 % (20.0-44.0); MEAN CORPUSCULAR HEMOGLOBIN 27 PG (26.0-33.0); MEAN CORPUSCULAR HGB CONC 33 g/dl (31.0-36.0); MEAN CORPUSCULAR VOLUME 84 fL (80-96); MONOCYTES # (AUTO) 0.4 /CMM (0.1-1.30); NEUTROPHILS # (AUTO) 6.3 /CMM (1.8-8.9); NEUTROPHILS % (AUTO) 89.4 % (43.0-81.0); PLATELET COUNT (AUTO) 128 /CMM (150-450); RED BLOOD CELL COUNT(AUTO) 3.76 MIL/uL (4.5-6.0); WHITE BLOOD COUNT (AUTO) 7.1 K/uL (4.3-11.0)
[2017-03-17 07:11] LABS: CALCIUM, SERUM 8.2 mg/dL (8.5-10.1); CREATININE 1.2 mg/dL (0.6-1.3); MAGNESIUM 1.9 mg/dL (1.8-2.4); PHOSPHORUS 2.6 mg/dL (2.5-4.9); POTASSIUM 5.6 mmol/L (3.5-5.1)
--- NOTE | 2017-03-17 07:37 | NUR ---
MS RN OPENING RECEIVED PATIENT A/OX4 DENIES SOB, DIFFICULTY BREATHING OR PAIN. PATIENT IS ON NC FOR COMFORT AT THIS TIME. PATIENT STATES NAUSEA IS MUCH BETTER. ALL NEEDS IN REACH AND PATIENT ASSISTED TO POSITION OF COMFORT. BED LOWERED AND LOCKED, RAILS UPX3 FOR SAFETY AND WILL ROUND Q2H OR LESS PER NEEDS. PATIENT REQUESTING TO LEAVE TODAY. STATES HE ALREADY HAS HH SET UP, AT HOME ON TOP OF IT TO HELP, ALL DME EQUIPMENT AT HOME AND PRN O2 NEEDED. WILL NOTIFY MD OF PATIENT WISHES
[2017-03-17 08:00] VITALS: BP 108/71
[2017-03-17 08:04] VITALS: BP 108/71
[2017-03-17] MEDS: ALLOPURINOL 100 MG TABLET PO SCH (08:23)
[2017-03-17] MEDS: PROCHLORPERAZINE EDISYLATE 10 MG/2 ML VIAL IM/IV PRN (08:23)
[2017-03-17] MEDS: CHOLECALCIFEROL 1,000 UNIT TABLET (VIT D3) PO SCH (08:23)
[2017-03-17] MEDS: PANTOPRAZOLE 40 MG TABLET.DR PO SCH (08:23)
[2017-03-17] MEDS: SENNOSIDES 8.6 MG TABLET PO SCH (08:24)
[2017-03-17] MEDS: VENLAFAXINE XR 37.5 MG CAP.SR.24H PO SCH (08:24)
[2017-03-17] MEDS: Z GUARD REMEDY 2 OZ OINT TP PRN ×2 (08:24→16:27)
--- NOTE | 2017-03-17 09:19 | NUR ---
MS RN NOTES REP FROM A [employer] CALLING IN RE TO PATIENT. ASKED PATIENT IF OK TO SPEAK WITH HER AND OK FROM PATIENT.
--- NOTE | 2017-03-17 13:48 | NUR ---
MS RN NOTES MESSAGE TO ANALI HOWARD TO NOTIFY OF DISCHARGE WELL ANALI IS NEEDING TO SPEAK WITH STEVE TO GET AUTH FROM INSURANCE FOR TRANSPORT AND SET UP A TRANSPORT FOR TUESDAY . [facility] WILL CALL. CALLED PATIENT PRIMARY MD DR RAFAEL JOSEPH [phone] TO SCHEDULE AN APPOINTMENT, MESSAGE LEFT
[2017-03-17] MEDS ORDERED: FUROSEMIDE 40 MG/4 ML VIAL IV ONE (14:00)
[2017-03-17] MEDS ORDERED: SODIUM POLYSTYRENE SULFONATE 15 G/60 ML BOTTLE PO ONE (14:00)
[2017-03-17 16:00] VITALS: BP 104/71
--- NOTE | 2017-03-17 16:12 | NUR ---
MS RN NOTES PER DONOVAN ORANTES CALLED PATIENT MD OFFICE AND SCHEDULED OFFICE APPOINTMENT FOR WEDNESDAY 03/21 AT 11AM
[2017-03-17] MEDS: RIVAROXABAN 10 MG TABLET PO SCH (16:27)
--- NOTE | 2017-03-17 18:38 | NUR ---
MS RN NOTES NOTIFIED DONOVAN ORANTES PATIENT IS NOT BEING TRANSFERRED TONIGHT. SPOKE MORE WITH PATIENT AND ; PATIENT EXAGGERATED HOW MUCH HELP HE IS GETTING AT HOME. THE WILL ONLY BE THERE FOR 4 HOURS A DAY TO ASSIST WITH NEEDS. WHEN SHE IS NOT HOME THERE IS NO ONE TO ASSIST PATIENT. VALE CM AWARE AND IS LOOKING INTO SNF FOR PATIENT.
--- NOTE | 2017-03-17 18:55 | NUR ---
MS RN CLOSING PATIENT STABLE. O2 ON 2LPM FOR COMFORT. ALL DUE MEDS GIVEN AND ALL NEEDS MET AND ATTENDED TO. PATIENT AT BEDSIDE AND BOTH UPDATED ON DC PLANNING ON AND SNF PLACEMENT. PATIENT IN POSITION OF COMFORT. CALL LIGHT IN REACH, BED LOWERED AND LOCKED, RAILS UPX3 FOR SAFETY AND BED ALARM ON. CARE WILL BE ENDORSED TO COLIN JAY FOR MAR
[2017-03-17 20:00] VITALS: BP 112/69
[2017-03-18] MEDS: ZOLPIDEM TARTRATE 5 MG TABLET PO PRN (00:47)
--- NOTE | 2017-03-18 00:52 | NUR ---
GIVEN AMBIEN 5 MG PO PER PATIENT'S REQUEST, MADE COMFORTABLE
--- NOTE | 2017-03-18 06:56 | NUR ---
MS RN NOTES AWAKE & RESPONSIVE. NOT IN ANY DISTRESS. NO SOB NOTED. DENIES ANY PAIN OR DISCOMFORT AT THIS TIME. WITH IV-HL PATENT & INTACT. MONITORED ACCORDINGLY. CALL LIGHT WITHIN REACH. BED IN LOWEST POSITION. SR UP X 2 FOR SAFETY. WILL ENDORSE TO NEXT SHIFT.
--- NOTE | 2017-03-18 07:49 | NUR ---
RN OPENING NOTES RECEIVED PATIENT IN BED, AWAKE, HOB, NO SOB OR DISTRESS NOTED. A/O X 4, VERBALLY RESPONSIVE AND ABLE TO MAKE NEEDS KNOWN. IV INTACT AND PATENT. KEPT PATIENT CLEAN AND COMFORTABLE IN BED, CALL LIGHT WITHIN PATIENT REACH. WILL CONTINUE TO MONITOR ACCORDINGLY.
[2017-03-18 08:00] VITALS: BP 123/75
[2017-03-18] MEDS: PANTOPRAZOLE 40 MG TABLET.DR PO SCH (08:20)
[2017-03-18] MEDS: CHOLECALCIFEROL 1,000 UNIT TABLET (VIT D3) PO SCH (08:20)
[2017-03-18] MEDS: VENLAFAXINE XR 37.5 MG CAP.SR.24H PO SCH (08:20)
[2017-03-18] MEDS: ALLOPURINOL 100 MG TABLET PO SCH (08:20)
[2017-03-18] MEDS: SENNOSIDES 8.6 MG TABLET PO SCH (08:20)
--- NOTE | 2017-03-18 11:30 | NUR ---
RN NOTES MILITARY PROFESSIONAL WILLI SAID THAT PATIENT IS GOING TO BE DISCHARGE TO [facility].
[2017-03-18 16:00] VITALS: BP 99/67
--- NOTE | 2017-03-18 16:35 | NUR ---
RN NOTES PATIENT WILL NOT BE DISCHARGE TODAY BECAUSE [facility] INSURANCE WAS NOT ABLE TO FIND A BARIATRIC GURNEY FOR TRANSPORTATION TODAY. POSSIBLE DISCHARGE TOMORROW MORNING.
[2017-03-18] MEDS: RIVAROXABAN 10 MG TABLET PO SCH (17:07)
--- NOTE | 2017-03-18 18:18 | NUR ---
RN NOTES ALL NEEDS PROVIDED, ATTENDED, AND ANTICIPATED. KEPT PATIENT CLEAN AND COMFORTABLE IN BED, CALL LIGHT WITHIN PATIENT REACH. WILL CONTINUE TO MONITOR ACCORDINGLY. ENDORSED TO NEXT SHIFT RN TO CONTINUE CARE.
--- NOTE | 2017-03-18 19:30 | NUR ---
MS RN NOTE: PATIENT RESTING IN BED, NO ACUTE DISTRESS NOTED. BREATHING EVEN AND UNLABORED, NO SOB NOTED. IV TO RIGHT EJ IN PLACE. BED LOCKED AND IN LOWEST POSITION, CALL LIGHT IN REACH. WILL CONTINUE TO MONITOR.
[2017-03-18 20:00] VITALS: BP 118/69
[2017-03-18] MEDS ORDERED: GUAIFENESIN/D-METHORPHAN HB 5 ML UDC ONE (22:49)
[2017-03-18] MEDS: GUAIFENESIN/D-METHORPHAN HB 5 ML UDC PO PRN (22:55)
--- NOTE | 2017-03-18 23:00 | NUR ---
MS RN NOTE: PATIENT COMPLAINS OF COUGHING WITH SMALL CLEAR PHLEGM. CALLED PONY TRIMMER MD, SPOKE TO DR. CALDWELL AND RECEIVED ORDER FOR ROBITUSSIN Q 4 HOURS NEEDED FOR COUGH. ORDER NOTED AND CARRIED OUT. ROBITUSSIN 5ML ORAL GIVEN PER MD ORDER. WILL CONTINUE TO MONITOR.
[2017-03-19] MEDS ORDERED: GUAIFENESIN/D-METHORPHAN HB 5 ML UDC ONE (04:25)
[2017-03-19] MEDS: GUAIFENESIN/D-METHORPHAN HB 5 ML UDC PO PRN ×3 (04:30→16:23)
--- NOTE | 2017-03-19 04:30 | NUR ---
MS RN NOTE: PATIENT COUGHING AND REQUESTING FOR COUGH MEDICATIONS, ROBITUSSIN DM GIVEN PER ORDER. WILL CONTINUE TO MONITOR.
--- NOTE | 2017-03-19 06:00 | NUR ---
MS RN NOTE: PATIENT RESTING IN BED, NO ACUTE DISTRESS NOTED. BREATHING EVEN AND UNLABORED, NO SOB NOTED. IV TO RIGHT IJ IN PLACE. BED LOCKED AND IN LOWEST POSITION, CALL LIGHT IN REACH. WILL ENDORSE TO DAY NURSE TO CONTINUE WITH PLAN OF CARE.
--- NOTE | 2017-03-19 07:22 | NUR ---
RN OPENING NOTES RECEIVED PATIENT IN BED, ASLEEP, HOB, NO SOB OR DISTRESS NOTED. A/O X 4, VERBALLY RESPONSIVE AND ABLE TO MAKE NEEDS KNOWN. PATIENT ON O2 2 LPM VIA NC AND TOLERATED WELL. IV INTACT AND PATENT. KEPT PATIENT CLEAN AND COMFORTABLE IN BED, CALL LIGHT WITHIN PATIENT REACH. WILL CONTINUE TO MONITOR ACCORDINGLY.
[2017-03-19 08:00] VITALS: BP 118/67
[2017-03-19] MEDS: ALLOPURINOL 100 MG TABLET PO SCH (08:00)
[2017-03-19] MEDS: VENLAFAXINE XR 37.5 MG CAP.SR.24H PO SCH (08:00)
[2017-03-19] MEDS: SENNOSIDES 8.6 MG TABLET PO SCH (08:00)
[2017-03-19] MEDS: CHOLECALCIFEROL 1,000 UNIT TABLET (VIT D3) PO SCH (08:00)
[2017-03-19] MEDS: PANTOPRAZOLE 40 MG TABLET.DR PO SCH (08:00)
--- NOTE | 2017-03-19 10:20 | NUR ---
RN NOTES PATIENT IS SITTING DOWN IN BED WITH NO SOB OR DISTRESS NOTED.
--- NOTE | 2017-03-19 12:57 | NUR ---
RN NOTES DAIRY HUSBANDRY WORKER GIL TALKED TO THE PATIENT AND SHE EXPLAINED HIM THAT [facility] CAN NOT ADMIT THE PATIENT YET BECAUSE THE BARIATRIC BED IS NOT AVAILABLE AT THE MOMENT. POSSIBLE DISCHARGE TODAY.
[2017-03-19 16:00] VITALS: BP 107/66
[2017-03-19] MEDS: RIVAROXABAN 10 MG TABLET PO SCH (16:25)
--- NOTE | 2017-03-19 17:15 | NUR ---
RN NOTES PATIENT IS STILL WAITING TO BE DISCHARGE BUT NO BARIATRIC BED AVAILABLE AT THIS MOMENT IN [facility].
--- NOTE | 2017-03-19 18:14 | NUR ---
RN CLOSING NOTES ALL NEEDS PROVIDED, ATTENDED, AND ANTICIPATED. KEPT PATIENT CLEAN AND COMFORTABLE IN BED. CALL LIGHT WITHIN PATIENT REACH. WILL CONTINUE TO MONITOR ACCORDINGLY. ENDORSED TO NEXT SHIFT RN TO CONTINUE CARE.
[2017-03-19 20:00] VITALS: BP 99/60
--- NOTE | 2017-03-19 20:00 | NUR ---
MS RN NOTES RECEIVED AWAKE A/OX4. NOT IN ANY DISTRESS. NO SOB NOTED. DENIES ANY PAIN OR DISCOMFORT AT THIS TIME. WITH TLC PATENT & INTACT. CALL LIGHT WITHIN REACH. BED IN LOWEST POSITION. SR UP X 3 FOR SAFETY. WILL CONTINUE TO MONITOR. PT FOR D/C TONIGHT. AWAITING FOR AMBULANCE FROM [facility]. REPORT GIVEN TO [facility] BY BENI SHAW.
--- NOTE | 2017-03-19 21:00 | NUR ---
MS RN NOTES CALLED JOSE FROM [facility] . LEFT A MESSAGE REGARDING AMBULANCE. CALLED VALE HOWARD FROM [facility]. LEFT A MESSAGE REGARDING PT'S D/C. CALLED [facility]. PER RN SUP BARIATRIC BED IS IN ALREADY. REQUESTED FOR RN FROM [facility] TO CALL US IF THERE'S AN UPDATE ABOUT THE D/C. NOTIFIED PT RE D/C. WILL CONTINUE TO MONITOR.
--- NOTE | 2017-03-19 21:40 | NUR ---
MS RN NOTES AMBULANCE CAME IN TO [facility] PT. PT NOT IN ANY DISTRESS. NO SOB NOTED. DENIES ANY PAIN OR DISCOMFORT AT THIS TIME. TLC D/CD. TIP INTACT. PT TOLERATED IT WELL. D/C INSTRUCTIONS PROVIDED. PT UNDERSTOOD IT WELL. D/C PICTURES TAKEN BY BENI SHAW. BELONGINGS SENT WITH PT. VSS. AFEBRILE. REPORT GIVEN TO AMBULANCE PERSONNEL FOR CONTINUITY OF CARE.
== END 2017-03-19 21:40 | DRG 812 ==
LOC: ER 22:55 → ICU 03-12 01:04 → MEDSG2 03-16 09:20
PROVIDERS: ADMIT Internal Medicine; ATTEND Internal Medicine
PROC: B548ZZA Ultrasonography of Superior Vena Cava, Guidance (ICD-10-PCS; principal; 2017-03-12)
PROC: 02HV33Z Insertion of Infusion Device into Superior Vena Cava, Percutaneous Approach (ICD-10-PCS; principal; 2017-03-12)
DX: T46.4X2A Poisoning by angiotensin-converting-enzyme inhibitors, intentional self-harm, initial encounter (principal); N17.0 Acute kidney failure with tubular necrosis; E43 Unspecified severe protein-calorie malnutrition; I50.33 Acute on chronic diastolic (congestive) heart failure; D68.59 Other primary thrombophilia; F32.2 Major depressive disorder, single episode, severe without psychotic features; E87.1 Hypo-osmolality and hyponatremia; I13.0 Hypertensive heart and chronic kidney disease with heart failure and stage 1 through stage 4 chronic kidney disease, or unspecified chronic kidney disease; L89.152 Pressure ulcer of sacral region, stage 2; I95.2 Hypotension due to drugs; Z68.42 Body mass index [BMI] 45.0-49.9, adult; E88.09 Other disorders of plasma-protein metabolism, not elsewhere classified; E87.5 Hyperkalemia; E66.01 Morbid (severe) obesity due to excess calories; D63.8 Anemia in other chronic diseases classified elsewhere; D72.829 Elevated white blood cell count, unspecified; I48.91 Unspecified atrial fibrillation; K21.9 Gastro-esophageal reflux disease without esophagitis; N18.9 Chronic kidney disease, unspecified; Z79.01 Long term (current) use of anticoagulants; I73.9 Peripheral vascular disease, unspecified; I87.2 Venous insufficiency (chronic) (peripheral); L57.0 Actinic keratosis; L98.8 Other specified disorders of the skin and subcutaneous tissue; F43.20 Adjustment disorder, unspecified; Z71.3 Dietary counseling and surveillance; Y92.009 Unspecified place in unspecified non-institutional (private) residence as the place of occurrence of the external cause; Q66.0 Congenital talipes equinovarus; Z79.899 Other long term (current) drug therapy
CPT/HCPCS: 36415; 71010-TC; 74000-TC; 80048-TC; 80053-TC; 80061-TC; 80076-TC; 80305; 81000-TC; 82306; 82728-TC; 83540-TC; 83735-TC; 84100-TC; 84439-TC; 84443-TC; 84484-TC; 85025-TC; 85610-TC; 87081-TC; 93307-TC; 93970-TC; 94762-TC; 94799-TC; 97001-TC; 97116-TC; 97530-TC; A4606; A6402; C1751; G0480; J0780; J1940; J2405; J7030; J7040; J7060; Z7610